=== PATIENT | female | born 1955 | race Caucasian/White ===

== ENCOUNTER → 2017-02-04 | Outpatient (CLI) | payer OTHER ==
--- NOTE | 2017-02-04 10:01 | DIAGNOSTIC IMAGING REPORT ---
CHEST 2 VIEWS ROUTINE CLINICAL HISTORY: R06.2 Wheezing on [id number] Shortness of [id number] COMPARISON STUDY: No previous studies for comparison. FINDINGS: The bones soft tissues and hemidiaphragms are normal. The cardiomediastinal silhouette is normal. The lungs are clear. The pulmonary vasculature is normal. IMPRESSION: Negative chest. Electronically signed by: Migue Garcia M.D. 02/04/2017 10:00 AM Dictated Date/Time: 02/04/2017 10:00 AM
== END | disposition home or self-care (01) ==
LOC: C.RAD 09:40
PROVIDERS: ATTEND Physician Assistant
DX: R06.02 Shortness of breath (principal); R06.2 Wheezing

== ENCOUNTER → 2017-02-13 | Outpatient (CLI) | payer OTHER ==
[2017-02-13 12:10] LABS: BASO % 0.5 %; BASO ABS # 0.04 K/uL (0-0.2); COMPLETE YES; EOS % 1.1 %; HEMATOCRIT 40.2 % (37-47); IG% 0.3 %; LYMPH ABS # 2.28 K/uL (1.2-3.4); MEAN CELL VOLUME 90.7 fL (80-100); MEAN CORPUSCULAR HEMOGLOBIN 29.1 pg (25-34); MEAN CORPUSCULAR HGB CONC 32.1 g/dl (32-36); MEAN PLATELET VOLUME 9.5 fL (7.4-10.4); MONO % 6.1 %; PLATELET COUNT 433 K/uL (130-400); RED BLOOD COUNT 4.43 M/uL (4.2-5.4); WHITE BLOOD COUNT 7.85 K/uL (4.8-10.8)
[2017-02-13 12:28] LABS: ALT/SGPT 17 U/L (12-78); BLOOD UREA NITROGEN 12 mg/dl (7-18); BUN/CREATININE RATIO 15.1 (10-20); CALCIUM 8.8 mg/dl (8.5-10.1); CARBON DIOXIDE 28 mmol/L (21-32); CHLORIDE 109 mmol/L (98-107); CHOLESTEROL 175 mg/dl (0-200); CREATININE 0.78 mg/dl (0.60-1.20); GLUCOSE,FASTING 90 mg/dl (70-99); SODIUM 142 mmol/L (136-145); TRIGLYCERIDES 90 mg/dl (0-150); VERY LOW DENSITY LIPOPROT CALC 18 mg/dl
[2017-02-13 12:31] LABS: ALKALINE PHOSPHATASE 76 U/L (45-117); AST/SGOT 10 U/L (15-37); CHOLESTEROL/HDL RATIO 3.8; HDL CHOLESTEROL 46 mg/dl; LDL CHOLESTEROL CALCULATED 111 mg/dl
== END | disposition home or self-care (01) ==
LOC: C.LABPBG 07:39
PROVIDERS: ATTEND Physician Assistant
DX: Z00.00 Encounter for general adult medical examination without abnormal findings (principal); R06.02 Shortness of breath; R05 Cough

== ENCOUNTER → 2017-03-03 | Outpatient (CLI) | payer OTHER ==
[2017-03-03 12:57] LABS: HEMATOCRIT 41.9 % (37-47); MEAN CELL VOLUME 91.3 fL (80-100); MEAN CORPUSCULAR HEMOGLOBIN 30.7 pg (25-34); MEAN CORPUSCULAR HGB CONC 33.7 g/dl (32-36); MEAN PLATELET VOLUME 9.8 fL (7.4-10.4); PLATELET COUNT 430 K/uL (130-400); RED BLOOD COUNT 4.59 M/uL (4.2-5.4); WHITE BLOOD COUNT 8.28 K/uL (4.8-10.8)
== END | disposition home or self-care (01) ==
LOC: C.LABPBG 08:28
PROVIDERS: ATTEND Physician Assistant
DX: D47.3 Essential (hemorrhagic) thrombocythemia (principal)

== ENCOUNTER → 2017-03-10 | Outpatient (CLI) | payer OTHER ==
[2017-03-10 12:19] LABS: HEMATOCRIT 40.1 % (37-47); MEAN CELL VOLUME 90.3 fL (80-100); MEAN CORPUSCULAR HEMOGLOBIN 29.3 pg (25-34); MEAN CORPUSCULAR HGB CONC 32.4 g/dl (32-36); MEAN PLATELET VOLUME 9.4 fL (7.4-10.4); PLATELET COUNT 401 K/uL (130-400); RED BLOOD COUNT 4.44 M/uL (4.2-5.4); WHITE BLOOD COUNT 6.98 K/uL (4.8-10.8)
[2017-03-10 13:06] LABS: C-REACTIVE PROTEIN 0.41 mg/dl (0-0.29); FERRITIN 21.7 ng/ml (8.0-388.0)
== END | disposition home or self-care (01) ==
LOC: C.LABPBG 07:38
PROVIDERS: ATTEND Physician Assistant
DX: D47.3 Essential (hemorrhagic) thrombocythemia (principal)

== ENCOUNTER → 2017-04-02 | Outpatient (CLI) | payer OTHER ==
--- NOTE | 2017-04-09 10:21 | CODING QUERY MEDICAL NECESSITY ---
SUPPORTING DIAGNOSIS NEEDED Dutch JEREMIE, A supporting diagnosis is required for the test/procedure performed on this patient in order for us to be reimbursed by the patient's insurance. Please provide a supporting diagnosis for the following test/procedure listed below next to the test name along with your signature. *If there is no additional diagnosis for this patient that would support the following test/procedure please document that below next to the test/procedure. Test(s)/Procedure(s) that require a supporting diagnosis: * VITAMIN D ASSAY DIAGNOSIS: DATE OF SERVICE: 04/02/17 Provider Signature: Date: Thank you Ari Gay [facility] Information Management Once completed, please kindly fax back to [phone] For questions please call [phone]
== END | disposition home or self-care (01) ==
LOC: C.LABPBG 09:51
PROVIDERS: ATTEND Physician Assistant
DX: Z13.21 Encounter for screening for nutritional disorder (principal); L65.9 Nonscarring hair loss, unspecified

== ENCOUNTER → 2017-11-21 | Outpatient (CLI) | payer OTHER ==
[~2017-11-21] MED LIST: ESCI10TA17 PO; FLUT50SP45 NAE; LISI-729 PO; PANT40TA PO; TRAZ50TA35 PO; VNTHFA/IN INH
== END | disposition home or self-care (01) ==
LOC: C.PATHSPEC 13:29
PROVIDERS: ATTEND Dermatology
DX: D22.5 Melanocytic nevi of trunk (principal); L82.0 Inflamed seborrheic keratosis

== ENCOUNTER → 2017-12-10 | Outpatient (CLI) | payer OTHER | END | disposition home or self-care (01) | LOC: C.PATHSPEC 11:39 | PROVIDERS: ATTEND Plastic Surgery | DX: L98.9 Disorder of the skin and subcutaneous tissue, unspecified (principal) ==

== ENCOUNTER → 2017-12-25 | Outpatient (CLI) | payer OTHER | END | disposition home or self-care (01) | LOC: C.PAPS 08:46 | PROVIDERS: ATTEND Obstetrics & Gynecology | DX: Z12.4 Encounter for screening for malignant neoplasm of cervix (principal) ==

== ENCOUNTER 2020-08-24 17:06 | Inpatient (IN) ==
[2020-08-24] MEDS ORDERED: LORazepam 1 MG/2 ML VIAL IV STA (17:38)
[2020-08-24] MEDS ORDERED: MULTI-VITAMIN INFUSION 10 ML, THIAMINE HCL 100 MG, FOLIC ACID 1 MG in SODIUM CHLORIDE 0... IV ONE (17:40)
--- NOTE | 2020-08-24 17:47 | Emergency Department Note ---
History of Present Illness General Chief complaint: Detox Request Stated complaint: NOT EATING, SHAKY Time Seen by Provider: 08/24/20 17:26 History of Present Illness Maximum Pain Intensity: 5 This is a 65-year-old female that presents to the emergency department via private vehicle with complaints of "not eating, shaky". The patient notes that she has consumed alcohol for several years. She states that normally she would drink about 6 beers per day and then notes that in the past there was an increase. She is unsure exactly when she increased her alcohol consumption but does note that on average now she consumes about 2 bottles of wine per day. She also does admit to some moonshine a few days ago. About 3 days ago after the moonshine she does note some bloody emesis. This was isolated. She does note that she has enrolled in detox before about 15 years ago while in [place]. Patient denies any seizure history related to this. The patient does feel quite shaky and agitated when not drinking. She also notes decreased food intake secondary to her upset stomach. The patient rates her current discomfort as a 5/10. Patient does note history of cholecystectomy. She denies any other pertinent past medical history or allergies. No anticoagulant use. Home Medications Medication Instructions Recorded Confirmed Type cholecalciferol (vitamin D3) 50 2,000 units PO DAILY #30 tab 03/08/19 08/24/20 Rx mcg (2,000 unit) tablet albuterol sulfate 90 mcg/actuation 2 puffs INH QID #8 gm 09/21/19 08/24/20 Rx aerosol inhaler lisinopril 5 mg tablet 5 mg PO DAILY #30 tab 03/03/20 08/24/20 Rx pantoprazole 40 mg tablet,delayed 40 mg PO DAILY #90 tab 03/21/20 08/24/20 Rx release fexofenadine 180 mg tablet 180 mg PO DAILY #30 tab 04/03/20 08/24/20 Rx escitalopram oxalate 20 mg tablet 20 mg PO DAILY #30 tab 05/24/20 08/24/20 Rx trazodone 50 mg tablet See Rx Instructions .ROUTE 06/30/20 08/24/20 Rx .COMPLEX #180 tab benzonatate 100 mg capsule 100 mg PO TID PRN #30 cap 08/17/20 08/24/20 Rx fluticasone propionate 50 2 spray INTNAS DAILY #16 gm 08/17/20 08/24/20 Rx mcg/actuation nasal spray,suspension Allergies Allergy/AdvReac Type Severity Reaction Status Date / Time No Known Allergies Allergy Verified 08/24/20 19:34 Past Med/Surg History Medical History (Updated 08/24/20 @ 23:28 by Sergio Escamilla PA-C) Allergic rhinitis Anxiety disorder Benign essential hypertension Depression Diverticulosis Elevated platelet count Elevated vitamin B12 level GERD without esophagitis Melanoma in situ Sinusitis, chronic Sleep disturbance Vitamin D deficiency Surgical History H/O: hysterectomy History of cholecystectomy History of sinus surgery History of tonsillectomy Family History Grandmother (Paternal) Colon cancer Father Cardiac disorder Sister Lung cancer Grandfather Lung cancer Grandmother (Maternal) Breast cancer Mother Ovarian cancer Denies family history of Prostate cancer Social History Smoking Status: Never smoker Second Hand Exposure: No; Hx Alcohol Use: Yes Alcohol type: wine Alcohol type Comment: 12 beers Hx Substance Use: No Preferred Language: Erit[place]an Communication Ability: Effective Visual Impairment: No Limitations Hearing Ability: Normal Cash Applications Coordinator Required: No Beliefs That Will Affect Care: None marital status: Current Living Situation: Spouse current occupational status: other 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 Feels Safe at Home: Yes Safety Concerns: Feels Safe At This Time Childhood Exposure to Second-Hand Smoke: Yes caffeine: Yes (coffee) during the past year weight has: remained stable Dental Care, Regularly: Yes Physical Activity Frequency: Daily Seatbelt Use: always Sunscreen Use: Yes Assistive Devices: Glasses Review of Systems A total of 10 systems reviewed and were otherwise negative Physical Exam Vital Signs Vital Signs - 24 hr 08/24/20 17:15 08/24/20 18:02 08/24/20 18:10 Temperature 36.9 C Temperature Source Skin Pulse Rate 120 H 101 H 103 H Respiratory Rate 19 19 29 H Blood Pressure 161/90 H Blood Pressure Mean 113 Pulse Oximetry 99 Oxygen Delivery Method Room Air Room Air Room Air Sepsis Recent Fever Within 48 Hours No Sepsis New/Unexplained Change in Mental Status N/A Sepsis Action Taken by Nursing No Action Required 08/24/20 18:23 08/24/20 18:30 08/24/20 18:40 Temperature Temperature Source Pulse Rate 113 H 103 H 102 H Respiratory Rate 26 H 20 22 Blood Pressure Blood Pressure Mean Pulse Oximetry Oxygen Delivery Method Room Air Room Air Room Air Sepsis Recent Fever Within 48 Hours Sepsis New/Unexplained Change in Mental Status Sepsis Action Taken by Nursing 08/24/20 18:50 08/24/20 19:00 08/24/20 19:10 Temperature Temperature Source Pulse Rate 102 H 101 H 102 H Respiratory Rate 20 20 21 Blood Pressure Blood Pressure Mean Pulse Oximetry Oxygen Delivery Method Room Air Room Air Room Air Sepsis Recent Fever Within 48 Hours Sepsis New/Unexplained Change in Mental Status Sepsis Action Taken by Nursing 08/24/20 19:20 08/24/20 19:30 08/24/20 19:40 Temperature Temperature Source Pulse Rate 105 H 102 H 102 H Respiratory Rate 23 22 20 Blood Pressure Blood Pressure Mean Pulse Oximetry Oxygen Delivery Method Room Air Room Air Room Air Sepsis Recent Fever Within 48 Hours Sepsis New/Unexplained Change in Mental Status Sepsis Action Taken by Nursing 08/24/20 19:50 08/24/20 19:52 Temperature Temperature Source Pulse Rate 105 H Respiratory Rate 23 Blood Pressure Blood Pressure Mean Pulse Oximetry Oxygen Delivery Method Room Air Room Air Sepsis Recent Fever Within 48 Hours Sepsis New/Unexplained Change in Mental Status Sepsis Action Taken by Nursing VITAL SIGNS - Vital signs and nursing notes were reviewed. Tachycardic, otherwise stable. GENERAL -65-year-old female appearing her stated age who is in no acute distres s. Communicates well with provider and answers questions appropriately. SKIN - Without rashes. No meningeal or petechial rash. HEAD - NC/AT. EYES - PERRL with EOMI bilaterally. Sclera anicteric. EARS - No deformities of external structures noted on gross examination bilaterally. NOSE - Midline and without cyanosis. No epistaxis or purulent drainage noted. MOUTH/OROPHARYNX - Without perioral cyanosis. NECK - Neck with FROM. No nuchal rigidity. LUNGS - Chest wall symmetric without accessory muscle use, intercostals retractions, or central cyanosis. Normal vesicular breath sounds CTA B/L. No wheezes, rales, or rhonchi appreciated. CARDIAC - RRR with S1/S2. No murmur, rubs, or gallops appreciated. ABDOMEN - Abdominal contour normal without pulsations or visible masses. BS normoactive all four quadrants. No tenderness, palpable masses, hepatosplenomegaly, or ascites noted. EXTREMITIES -tremor noted with patient's upper extremities outstretched. +5/5 strength noted in UE/LE bilaterally. NEUROLOGIC - Cranial nerves II through XII grossly intact. PSYCH - A&Ox3 and cooperates fully with examiner. Pt is very pleasant and interacts well with examiner. Course Administered Medications Acetaminophen (Acetaminophen 325 Mg Tab) 650 mg PO Q4H PRN PRN Reason: Pain or Fever Stop: 09/23/20 22:27 Last Admin: 08/24/20 23:13 Dose: 650 mg Documented by: [id number] Sodium Chloride (Nss 1000ml) 1,000 mls @ 100 mls/hr IV .Q10H MARÍA ELENA Stop: 08/25/20 18:27 Last Admin: 08/24/20 22:48 Dose: 100 mls/hr Documented by: [id number] Discontinued Medications Lorazepam (Ativan) 1 mg in 2 mls @ 2 mls/min IV NOW STA Stop: 08/24/20 17:39 Last Admin: 08/24/20 18:41 Dose: 2 mls/min Documented by: [id number] Multivitamins 10 ml/ Thiamine HCl 100 mg/ Folic Acid 1 mg/Sodium Chloride 1,011.2 mls @ 1,011.2 mls/hr IV .Q1H ONE Stop: 08/24/20 18:39 Last Infusion: 08/24/20 19:43 Dose: 0 mls/hr Documented by: [id number] Admin: 08/24/20 18:40 Dose: 1,011.2 mls/hr Documented by: [id number] Sodium Chloride (Nss 1000ml) 500 mls @ 999 mls/hr IV .Q31M ONE Stop: 08/24/20 20:50 Last Infusion: 08/24/20 21:16 Dose: 0 mls/hr Documented by: [id number] Admin: 08/24/20 20:44 Dose: 999 mls/hr Documented by: [id number] Medical Decision Making Laboratory Data Result diagrams: 08/24/20 18:28 08/24/20 18:28 Lab Results 08/24/20 08/24/20 08/24/20 Range/Units 18:28 18:28 18:28 WBC 12.50 H (4.8-10.8) K/uL RBC 4.33 (4.2-5.4) M/uL Hgb 13.1 (12.0-16.0) g/dL Hct 38.3 (37-47) % MCV 88.5 (80-100) fL MCH 30.3 (25-34) pg MCHC 34.2 (32-36) g/dL RDW Std Deviation 44.1 (36.4-46.3) fL RDW Coeff of Cory 13.4 (11.5-14.5) % Plt Count 484 H (130-400) K/uL MPV 8.2 (7.4-10.4) fL Immature Gran % (Auto) 0.2 % Neut % (Auto) 74.3 % Lymph % (Auto) 17.6 % [place] % (Auto) 7.4 % Eos % (Auto) 0.3 % Baso % (Auto) 0.2 % Neut # (Auto) 9.28 H (1.4-6.5) K/uL Lymph # (Auto) 2.20 (1.2-3.4) K/uL [place] # (Auto) 0.93 H (0.11-0.59) K/uL Eos # (Auto) 0.04 (0-0.5) K/uL Baso # (Auto) 0.03 (0-0.2) K/uL Immature Gran # (Auto) 0.02 (0.00-0.02) K/uL PT 10.4 (9.0-12.0) Seconds INR 1.0 (0.9-1.1) APTT 28.5 (21.0-31.0) Seconds PTT Ratio 1.0 Sodium 127 L (136-145) mmol/L Potassium 4.0 (3.5-5.1) mmol/L Chloride 92 L (98-107) mmol/L Carbon Dioxide 27 (21-32) mmol/L Anion Gap 8.0 (3-11) BUN 12 (7-18) mg/dl Creatinine 1.04 (0.6-1.2) mg/dl Est Cr Clr Drug Dosing 56.9 ml/min Est GFR ( Amer) 65.8 Est GFR (Non-Af Amer) 56.7 BUN/Creatinine Ratio 11.2 (10-20) Glucose 99 (70-99) mg/dl Osmolality (280-300) mOsm/kg Calcium 9.0 (8.5-10.1) mg/dl Magnesium 2.2 (1.8-2.4) mg/dl Total Bilirubin 1.4 H (0.2-1) mg/dl AST 14 L (15-37) U/L ALT 27 (12-78) U/L Alkaline Phosphatase 82 (45-117) U/L Total Protein 7.9 (6.4-8.2) gm/dl Albumin 4.2 (3.4-5.0) gm/dl Globulin 3.7 (2.5-4.0) gm/dl Albumin/Globulin Ratio 1.1 (0.9-2) Lipase 110 (73-393) U/L Ethyl Alcohol mg/dL (0-3) mg/dl 08/24/20 08/24/20 Range/Units 18:28 18:30 WBC (4.8-10.8) K/uL RBC (4.2-5.4) M/uL Hgb (12.0-16.0) g/dL Hct (37-47) % MCV (80-100) fL MCH (25-34) pg MCHC (32-36) g/dL RDW Std Deviation (36.4-46.3) fL RDW Coeff of Cory (11.5-14.5) % Plt Count (130-400) K/uL MPV (7.4-10.4) fL Immature Gran % (Auto) % Neut % (Auto) % Lymph % (Auto) % [place] % (Auto) % Eos % (Auto) % Baso % (Auto) % Neut # (Auto) (1.4-6.5) K/uL Lymph # (Auto) (1.2-3.4) K/uL [place] # (Auto) (0.11-0.59) K/uL Eos # (Auto) (0-0.5) K/uL Baso # (Auto) (0-0.2) K/uL Immature Gran # (Auto) (0.00-0.02) K/uL PT (9.0-12.0) Seconds INR (0.9-1.1) APTT (21.0-31.0) Seconds PTT Ratio Sodium (136-145) mmol/L Potassium (3.5-5.1) mmol/L Chloride (98-107) mmol/L Carbon Dioxide (21-32) mmol/L Anion Gap (3-11) BUN (7-18) mg/dl Creatinine (0.6-1.2) mg/dl Est Cr Clr Drug Dosing ml/min Est GFR ( Amer) Est GFR (Non-Af Amer) BUN/Creatinine Ratio (10-20) Glucose (70-99) mg/dl Osmolality 267 L (280-300) mOsm/kg Calcium (8.5-10.1) mg/dl Magnesium (1.8-2.4) mg/dl Total Bilirubin (0.2-1) mg/dl AST (15-37) U/L ALT (12-78) U/L Alkaline Phosphatase (45-117) U/L Total Protein (6.4-8.2) gm/dl Albumin (3.4-5.0) gm/dl Globulin (2.5-4.0) gm/dl Albumin/Globulin Ratio (0.9-2) Lipase (73-393) U/L Ethyl Alcohol mg/dL < 3.0 (0-3) mg/dl Imaging Data Radiologist's Impression: SINGLE VIEW CHEST CLINICAL HISTORY: Cough FINDINGS: An AP, portable, upright chest radiograph is compared to study dated 02/04/2017. The cardiomediastinal silhouette is unremarkable. The lungs and pleural spaces are clear. No pneumothorax is seen. The bony thorax is grossly intact. Cholecystectomy clips are noted in the right upper quadrant. Scoliosis is noted in the thoracolumbar spine. IMPRESSION: No active disease in the chest. ACT 112: Negative or not required by law. Electronically signed by: Alexey Watt M.D. 08/24/2020 5:51 PM [facility] Narrative Patient was seen and evaluated as above in room C2. Review was performed of nursing notes and vital signs. After obtaining a thorough history and physical examination the above work up was performed. Patient presents to us today with a desire to quit drinking. She appears to be actively withdrawing from alcohol on my examination. Patient does note feeling agitated, has a tremor with arms outstretched and does note that she has not had any to drink since this morning. She is here seeking help to stop drinking. She does note an increase in her consumption of alcohol recently. Options of care were discussed with the patient. EKG was obtained on arrival given her tachycardic state which revealed sinus tachycardia rate of 103 bpm. No ectopy or ischemic change. No ST el evation. QTc 450. She was given IV Ativan and a banana bag. She was reevaluated with tremendous improvement. There is mild leukocytosis 12.5 without significant anemia. Hyponatremia 127. There is no evidence of emergent kidney or liver failure. T bili 1.4. Covid testing negative. Current alcohol level negative. Lipase within normal limits. Options of care were discussed with the patient. Given the time of day and presentation options at this time after discussing this with case management would either be discharging the patient home to reach out to [facility] for resources in the morning versus admission here. I do not believe that it would be safe to discharge patient at this time on a Librium taper noting how much she is drinking and noting that she is not tolerating p.o. well and also the variability of being able to follow-up for rehab. I will also note that the patient does have a significantly decreased sodium level. Patient desires to stay which I do believe is reasonable. This was discussed with the hospitalist and I do believe this is the best scenario for the patient. Please refer to further documentation regarding her stay. Patient was seen during the COVID- pandemic. Continuous cardiac monitoring was ordered secondary to presentation with her t achycardic state. This revealed a rate of 105 bpm. Sinus rhythm. GCS: 15 In the evaluation and treatment of this patient the following differential diagnoses were entertained: SD, PE, arrhythmia, pericarditis, costochondritis, alcohol withdrawal, DTs, seizure, among others. Impression & Plan Alcohol withdrawal, Acute hyponatremia Discharge Plan Visit Data Chief Complaint: Detox Request Stated Complaint: NOT EATING, SHAKY ED Provider: Abdelrahman Lubin ED Midlevel Provider: Sergio Escamilla Discharge Problem: Alcohol withdrawal, Acute hyponatremia Patient Disposition: Admitted As Inpatient Discharge Instructions Interventions: ED Discharge Assessment Last Done: 08/24/20 21:42
--- NOTE | 2020-08-24 17:53 | XRay Report ---
SINGLE VIEW CHEST CLINICAL HISTORY: Cough FINDINGS: An AP, portable, upright chest radiograph is compared to study dated 02/04/2017. The cardiom ediastinal silhouette is unremarkable. The lungs and pleural spaces are clear. No pneumothorax is see n. The bony thorax is grossly intact. Cholecystectomy clips are noted in the right upper quadrant. Sc oliosis is noted in the thoracolumbar spine. IMPRESSION: No active disease in the chest. ACT 112: Negative or not required by law. Electronically signed by: Alexey Watt M.D. 08/24/2020 5:51 PM
[2020-08-24 18:40] LABS: Basophils # (auto) 0.03 K/uL (0-0.2); Basophils % (auto) 0.2 %; Eosinophils # (auto) 0.04 K/uL (0-0.5); Eosinophils % (auto) 0.3 %; Hematocrit (blood only) 38.3 % (37-47); Hemoglobin 13.1 g/dL (12.0-16.0); Immature Granulocytes # (auto) 0.02 K/uL (0.00-0.02); Immature Granulocytes % (auto) 0.2 %; Lymphocytes % (auto) 17.6 %; Mean Corpuscular Hemoglobin 30.3 pg (25-34); Mean Corpuscular Hgb Conc 34.2 g/dL (32-36); Mean Corpuscular Volume 88.5 fL (80-100); Mean Platelet Volume 8.2 fL (7.4-10.4); Monocytes # (auto) 0.93 K/uL (0.11-0.59); Monocytes % (auto) 7.4 %; Neutrophils # (auto) 9.28 K/uL (1.4-6.5); Neutrophils % (auto) 74.3 %; Platelet Count 484 K/uL (130-400); RDW Coefficient of Variation 13.4 % (11.5-14.5); RDW Standard Deviation 44.1 fL (36.4-46.3); Red Blood Count 4.33 M/uL (4.2-5.4)
[2020-08-24 18:51] LABS: Partial Thromboplastin Time 28.5 Seconds (21.0-31.0); Prothrombin Time 10.4 Seconds (9.0-12.0)
[2020-08-24 18:57] LABS: Albumin Level 4.2 gm/dl (3.4-5.0); BUN Creatinine Ratio 11.2 (10-20); Creatinine Clr Calc Pharmacy 56.9 ml/min; Est GFR (African American) 65.8; Est GFR (Non-African American) 56.7; Magnesium 2.2 mg/dl (1.8-2.4)
[2020-08-24 19:00] LABS: Albumin Globulin Ratio 1.1 (0.9-2); Bilirubin,Total 1.4 mg/dl (0.2-1); Globulin 3.7 gm/dl (2.5-4.0); Total Protein 7.9 gm/dl (6.4-8.2)
--- NOTE | 2020-08-24 20:05 | History & Physical Report ---
Date of Service August 24, 2020 Assessment & Plan (1) Alcohol withdrawal: Patient is a 65 year old female with PMHx Alcohol use disorder, Asthma, Anxiety, Depression, Hypertension that presented with concerns of alcohol withdrawal, last drink was around 10AM 08/24/20. Alcohol Withdrawal -Patient noting last drink 10AM 08/24/20 of 1 bottle of wine -Drinks roughly 2 bottles of wine or 30 beers daily for "several years" -Alcohol level on admission <3 -Given 1mg Lorazepam and Banana bag infusion in ED -Will place on AWSS protocol with Gabapentin and Ativan PRN -Folic acid 1mg qd -Thiamine 100mg qd -Seizure precautions -Patient noting that she would want to go to rehab after this hospital stay Hyponatremia -Sodium 127 on admission -Likely secondary to alcohol use disorder, though will order for Serum and Urine Osmols, pending. -NSS 100ml/hr Allergic Asthma -Albuterol PRN wheezing -Continue home Flonase -Continue home Lynette GERD -Continue home pantoprazole HTN -Continue home Lisinopril Anxiety/Depression -Continue home Lexapro -Continue home Trazodone qhs Dispo: Med/Surg Telemetry FEN: Regular diet, NSS 100ml/hr DVT: Low risk, SCDs Code: DNR/DNI History of Present Illness Chief Complaint: Alcohol withdrawal Primary Care Provider: Dinah Carranza DO Patient is a 65 year old female with PMHx Alcohol use disorder, Asthma, Anxiety, Depression, Hypertension that presented with concerns of alcohol withdrawal, last drink was around 10AM 08/24/20. Patient notes that 3 days ago she had been drinking wine and moonshine when she had "multiple episodes of bloody vomit." Patient was unable to determine amount of blood that was excreted. She states that during that time she also had visual hallucinations, though cannot recall what she had seen. She notes a longstanding history of alcohol use and that she typically will do 2 bottles of wine daily or 30 beers. She notes that she also had a single bout of bloody emesis yesterday, but that it was minimal compared to 3 days ago. Patients last drink was around 10AM today which was 1 bottle of wine. She notes currently that she is feeling "shaky" with nausea and 1x episode of mucus emesis prior to my arrival to the room. She also notes urinary hesitancy, but denies any dysuria. She states she is interested in "detox" and for admission to a rehab facility after discharge. She had last undergone rehab 15 years ago and was sober for 2 months after that discharge. Currently otherwise denies any fever, chills, sob, chest pain, abdominal pain at rest, constipation, hallucinations. She has never had a seizure due to withdrawals. Med Hx: Asthma, Anxiety, Depression, HTN, Alcohol use disorder Surg hx: Cholecystectomy Family Hx: Uncle and Son alcohol use disorder Allergies Allergy/AdvReac Type Severity Reaction Status Date / Time No Known Allergies Allergy Verified 08/24/20 19:34 Home Medications Medication Instructions Recorded Confirmed Type cholecalciferol (vitamin D3) 50 2,000 units PO DAILY #30 tab 03/08/19 08/24/20 Rx mcg (2,000 unit) tablet albuterol sulfate 90 mcg/actuation 2 puffs INH QID #8 gm 09/21/19 08/24/20 Rx aerosol inhaler lisinopril 5 mg tablet 5 mg PO DAILY #30 tab 03/03/20 08/24/20 Rx pantoprazole 40 mg tablet,delayed 40 mg PO DAILY #90 tab 03/21/20 08/24/20 Rx release fexofenadine 180 mg tablet 180 mg PO DAILY #30 tab 04/03/20 08/24/20 Rx escitalopram oxalate 20 mg tablet 20 mg PO DAILY #30 tab 05/24/20 08/24/20 Rx trazodone 50 mg tablet See Rx Instructions .ROUTE 06/30/20 08/24/20 Rx .COMPLEX #180 tab benzonatate 100 mg capsule 100 mg PO TID PRN #30 cap 08/17/20 08/24/20 Rx fluticasone propionate 50 2 spray INTNAS DAILY #16 gm 08/17/20 08/24/20 Rx mcg/actuation nasal spray,suspension Past Med/Surg History Medical History (Updated 08/24/20 @ 23:28 by Sergio Escamilla PA-C) Allergic rhinitis Anxiety disorder Benign essential hypertension Depression Diverticulosis Elevated platelet count Elevated vitamin B12 level GERD without esophagitis Melanoma in situ Sinusitis, chronic Sleep disturbance Vitamin D deficiency Surgical History H/O: hysterectomy History of cholecystectomy History of sinus surgery History of tonsillectomy Family History Grandmother (Paternal) Colon cancer Father Cardiac disorder Sister Lung cancer Grandfather Lung cancer Grandmother (Maternal) Breast cancer Mother Ovarian cancer Denies family history of Prostate cancer Social History Smoking Status: Never smoker Second Hand Exposure: No; Hx Alcohol Use: Yes Alcohol type: wine Alcohol type Comment: 12 beers Hx Substance Use: No Preferred Language: [place] Communication Ability: Effective Visual Impairment: No Limitations Hearing Ability: Normal Horse Identifier Required: No Beliefs That Will Affect Care: None marital status: Current Living Situation: Spouse current occupational status: other 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 Feels Safe at Home: Yes Safety Concerns: Feels Safe At This Time Childhood Exposure to Second-Hand Smoke: Yes caffeine: Yes (coffee) during the past year weight has: remained stable Dental Care, Regularly: Yes Physical Activity Frequency: Daily Seatbelt Use: always Sunscreen Use: Yes Assistive Devices: Glasses Review of Systems Review of Systems: All systems reviewed & are unremarkable except as noted in Subjective Physical Exam Constitutional: + disheveled and cooperative; no acute distress and not intoxicated appearing Eyes: PERRL, conjunctivae normal, anicteric sclerae ENMT: external ear and nose normal, oropharynx normal Respiratory: normal respiratory effort, lungs clear to auscultation Cardiovascular: Rate/Rhythm: + tachycardic Heart Sounds: normal S1 and normal S2; no murmur Gastrointestinal (Abdomen): Inspection/Auscultation: abdomen normal to inspection and normal bowel sounds; abdomen not distended Percussion/Palpation: + abdomen tender (slight TTP in the lower L quadrant ) and abdomen soft; no guarding, abdomen not rigid and no hepatosplenomegaly Skin: no rashes, warm and dry Neurologic: PERRL, EOMI, accommodation nl, no face palsy, no dysarthria Psychiatric: Orientation: alert and oriented x 3 Affect: + anxious affect Results & Data Results & Data ([facility]) Vital Signs (Past 12 Hours) Vital Signs Temp Pulse Resp BP Pulse Ox 08/24/20 19:50 105 H 23 01/07/21 19:40 102 H 20 08/24/20 19:30 102 H 22 08/24/20 19:20 105 H 23 08/24/20 19:10 102 H 21 08/24/20 19:00 101 H 20 08/24/20 18:50 102 H 20 08/24/20 18:40 102 H 22 08/24/20 18:30 103 H 20 08/24/20 18:23 113 H 26 H 08/24/20 18:10 103 H 29 H 08/24/20 18:02 101 H 19 08/24/20 17:15 36.9 C 120 H 19 161/90 H 99 Supervising Physician Co-Signing Physician Notes Attending addendum: I have physically seen this patient, have supervised the medical residents activities, and agree with the H&P unless as otherwise noted. Assessment and Plan: Alcohol withdrawal- Placed on RUBEN is protocol with gabapentin orally and as needed Ativan IV. Folic acid 1 mg p.o. daily Thiamine 100 mg p.o. daily Nephrocaps 1 p.o. daily Seizure precautions Hyponatremia-sodium 127 upon admission. Check serum and urine osmolality NSS at 100 mils per hour Hypertension- Continue home dosing of lisinopril GERD- Continue pantoprazole 40 mg daily Asthma/allergy- Continue Flonase and Lynette. Albuterol HFA as needed Remaining orders and notations as noted Resident Activity Tracking Resident Involvement: Resident Care Provided Care Provided: Adult Hospital Medicine
[2020-08-24] MEDS ORDERED: SODIUM CHLORIDE 0.9% 1000ML 500 ML IV ONE (20:20)
[2020-08-24] MEDS ORDERED: ALBUTEROL HFA 8 GM INHALER INH PRN (22:28)
[2020-08-24] MEDS ORDERED: GABAPENTIN 1200MG ALCOHOL WITHDRAWAL LOAD PO STA (22:28)
[2020-08-24] MEDS ORDERED: LORazepam 3 MG/6 ML VIAL IV PRN (22:28)
[2020-08-24] MEDS ORDERED: ATIVAN IV ALCOHOL WITHDRAWL IV PRN (22:28)
[2020-08-24] MEDS ORDERED: LORazepam 2 MG/4 ML VIAL IV PRN (22:28)
[2020-08-24] MEDS: SODIUM CHLORIDE 0.9% 1000ML 1,000 ML IV SCH (22:48)
[2020-08-24] MEDS ORDERED: GABAPENTIN 600 MG TAB PO ONE (23:00)
[2020-08-24] MEDS: ACETAMINOPHEN 325 MG TAB PO PRN (23:13)
[2020-08-24] MEDS: FOLIC ACID 1 MG TAB PO SCH (23:27)
[2020-08-24] MEDS: traZODone HCL 100 MG TAB PO SCH (23:27)
[2020-08-24] MEDS: THIAMINE HCL 100 MG TAB PO SCH (23:28)
[2020-08-25] MEDS: GABAPENTIN 600 MG TAB PO SCH ×3 (06:39→21:00)
[2020-08-25] MEDS: ACETAMINOPHEN 325 MG TAB PO PRN ×2 (06:40→14:20)
[2020-08-25 06:56] LABS: Basophils # (auto) 0.03 K/uL (0-0.2); Basophils % (auto) 0.5 %; Eosinophils % (auto) 1.5 %; Hematocrit (blood only) 32.3 % (37-47); Hemoglobin 10.8 g/dL (12.0-16.0); Immature Granulocytes # (auto) 0.01 K/uL (0.00-0.02); Immature Granulocytes % (auto) 0.2 %; Lymphocytes # (auto) 2.01 K/uL (1.2-3.4); Lymphocytes % (auto) 30.6 %; Mean Corpuscular Hemoglobin 30.2 pg (25-34); Mean Corpuscular Hgb Conc 33.4 g/dL (32-36); Mean Corpuscular Volume 90.2 fL (80-100); Mean Platelet Volume 8.3 fL (7.4-10.4); Monocytes # (auto) 0.64 K/uL (0.11-0.59); Monocytes % (auto) 9.8 %; Neutrophils # (auto) 3.77 K/uL (1.4-6.5); Neutrophils % (auto) 57.4 %; Platelet Count 367 K/uL (130-400); RDW Coefficient of Variation 13.7 % (11.5-14.5); RDW Standard Deviation 45.4 fL (36.4-46.3); Red Blood Count 3.58 M/uL (4.2-5.4); White Blood Count 6.56 K/uL (4.8-10.8)
[2020-08-25 07:28] LABS: Albumin Globulin Ratio 1.3 (0.9-2); Albumin Level 3.2 gm/dl (3.4-5.0); BUN Creatinine Ratio 13.3 (10-20); Bilirubin,Total 1.6 mg/dl (0.2-1); Calcium 8.5 mg/dl (8.5-10.1); Creatinine Clr Calc Pharmacy 92.7 ml/min; Est GFR (African American) 108.7; Est GFR (Non-African American) 93.8; Globulin 2.5 gm/dl (2.5-4.0); Total Protein 5.7 gm/dl (6.4-8.2)
[2020-08-25] MEDS: lisinopril 5 MG TAB PO SCH (08:18)
[2020-08-25] MEDS: ESCITALOPRAM OXALATE 20 MG TAB PO SCH (08:18)
[2020-08-25] MEDS: THIAMINE HCL 100 MG TAB PO SCH (08:18)
[2020-08-25] MEDS: FEXOFENADINE HCL 180 MG TAB PO SCH (08:18)
[2020-08-25] MEDS: FLUTICASONE PROPIONATE NA SPR 16 GM BTL NAE SCH (08:18)
[2020-08-25] MEDS: PANTOprazole 40 MG TAB PO SCH (08:18)
[2020-08-25 08:21] LABS: Folate (Folic Acid) > 20.00 ng/ml (>5.38); Vitamin B12 1133 pg/ml (193-986)
[2020-08-25] MEDS: ONDANSETRON INJ 2 MG/ML 2 ML VIAL IV PRN (08:47)
[2020-08-25] MEDS: SODIUM CHLORIDE 0.9% 1000ML 1,000 ML IV SCH (08:49)
[2020-08-25] MEDS: FOLIC ACID 1 MG TAB PO SCH (09:09)
--- NOTE | 2020-08-25 11:56 | Electrocardiogram Report ---
Test Reason : Blood Pressure : / mmHG Vent. Rate : 103 BPM Atrial Rate : 103 BPM P-R Int : 158 ms QRS Dur : 080 ms QT Int : 344 ms P-R-T Axes : 060 022 031 degrees QTc Int : 450 ms Sinus tachycardia Otherwise normal ECG No previous ECGs available Confirmed by Roland Francois ([id number]) on 08/25/2020 11:56:25 AM Referred By: REFERRED SELF Confirmed By:Roland Francois
[2020-08-25] MEDS: guaiFENesin/DEXTROM SYRUP 200MG/20MG 10ML UDC PO PRN (17:25)
[2020-08-25] MEDS: traZODone HCL 100 MG TAB PO SCH (21:00)
--- NOTE | 2020-08-25 22:37 | Hospitalist Progress Note ---
Date of Service August 25, 2020 Assessment & Plan (1) Alcohol withdrawal: Patient is a 65 year old female with PMHx Alcohol use disorder, Asthma, Anxiety, Depression, Hypertension that presented with concerns of alcohol withdrawal, last drink was around 10AM 08/24/20. Alcohol Withdrawal -Patient noting last drink 10AM 08/24/20 of 1 bottle of wine -Drinks roughly 2 bottles of wine or 30 beers daily for "several years" -Alcohol level on admission <3 will continue gabapentin taper and ativan scale. One dose of gabapentin was held due to lethargy. -Patient noting that she would want to go to rehab after this hospital stay (2) Hyponatremia: Hyponatremia -Sodium 127 on admission -Likely secondary to alcohol use disorder, though will order for Serum and Urine Osmols, pending. -NSS 100ml/hr (3) Allergic rhinitis: Allergic Asthma -Albuterol PRN wheezing -Continue home Flonase -Continue home Lynette (4) GERD without esophagitis: GERD -Continue home pantoprazole HTN -Continue home Lisinopril (5) Benign essential hypertension: continue home meds. BP at goal. (6) Anxiety disorder: -Continue home Lexapro -Continue home Trazodone qhs Dispo: Med/Surg Telemetry FEN: Regular diet, NSS 100ml/hr DVT: Low risk, SCDs Code: DNR/DNI Admission and Anticipated Discharge Date Admission Date: August 24, 2020 Subjective Patient reports feeling well. Her main complaint is that she is worried about sleeping this evening Review of Systems Review of Systems: All systems reviewed & are unremarkable except as noted in HPI & below Physical Exam Physical Exam: Constitutional: no acute distress and not intoxicated appearing Eyes: PERRL, conjunctivae normal, anicteric sclerae ENMT: external ear and nose normal, oropharynx normal Respiratory: normal respiratory effort, lungs clear to auscultation Cardiovascular: Rate/Rhythm: + tachycardic Heart Sounds: normal S1 and normal S2; no murmur Gastrointestinal (Abdomen): Inspection/Auscultation: abdomen normal to inspection and normal bowel sounds; abdomen not distended Percussion/Palpation: + abdomen tender (slight TTP in the lower L quadrant ) and abdomen soft; no guarding, abdomen not rigid and no hepatosplenomegaly Skin: no rashes, warm and dry Neurologic: PERRL, EOMI, accommodation nl, no face palsy, no dysarthria Psychiatric: Orientation: alert and oriented x 3 Affect: + anxious affect Results & Data Results & Data ([facility]) Vital Signs (Past 12 Hours) Vital Signs Temp Pulse Pulse Resp BP Pulse Ox 08/25/20 19:00 36.7 C 95 H 18 125/78 94 08/25/20 15:00 36.7 C 96 H 105 H 18 125/78 97 08/25/20 11:23 36.6 C 106 H 20 134/83 93 PG Care Time/CCT Total # of Minutes Spent Total Time Spent with Patient: Total time spent is greater than 50% in coordination of care (as documented) at patient's floor/unit and/or counseling patient: Coding Level of Care Code 87645 Subseq Hosp Care Lvl 3 Diagnoses Alcohol withdrawal F10.239 Hyponatremia E87.1 Allergic rhinitis J30.9 GERD without esophagitis K21.9 Benign essential hypertension I10 Anxiety disorder F41.9
[2020-08-26] MEDS: ACETAMINOPHEN 325 MG TAB PO PRN ×3 (05:02→14:36)
[2020-08-26] MEDS: GABAPENTIN 600 MG TAB PO SCH ×2 (05:03→14:36)
--- NOTE | 2020-08-26 06:23 | Billing Data ---
Date of Service August 26, 2020 Coding Level of Care Code 78904 Initial Inpt Care Lvl 3
[2020-08-26 08:09] LABS: Hematocrit (blood only) 33.9 % (37-47); Hemoglobin 11.2 g/dL (12.0-16.0); Mean Corpuscular Hemoglobin 30.3 pg (25-34); Mean Corpuscular Volume 91.6 fL (80-100); Mean Platelet Volume 8.2 fL (7.4-10.4); Platelet Count 334 K/uL (130-400); RDW Coefficient of Variation 13.6 % (11.5-14.5); RDW Standard Deviation 45.9 fL (36.4-46.3)
[2020-08-26 08:31] LABS: BUN Creatinine Ratio 16.9 (10-20); Creatinine Clr Calc Pharmacy 93.1 ml/min; Est GFR (African American) 108.7; Est GFR (Non-African American) 93.8; Potassium 4.2 mmol/L (3.5-5.1)
[2020-08-26] MEDS: lisinopril 5 MG TAB PO SCH (08:42)
[2020-08-26] MEDS: ESCITALOPRAM OXALATE 20 MG TAB PO SCH (08:42)
[2020-08-26] MEDS: guaiFENesin/DEXTROM SYRUP 200MG/20MG 10ML UDC PO PRN ×2 (08:42→14:36)
[2020-08-26] MEDS: FEXOFENADINE HCL 180 MG TAB PO SCH (08:42)
[2020-08-26] MEDS: FOLIC ACID 1 MG TAB PO SCH (08:42)
[2020-08-26] MEDS: PANTOprazole 40 MG TAB PO SCH (08:42)
[2020-08-26] MEDS: THIAMINE HCL 100 MG TAB PO SCH (08:43)
[2020-08-26] MEDS: FLUTICASONE PROPIONATE NA SPR 16 GM BTL NAE SCH (08:43)
[2020-08-26] MEDS: LORazepam 1 MG/2 ML VIAL IV PRN (11:26)
[2020-08-26] MEDS: ONDANSETRON INJ 2 MG/ML 2 ML VIAL IV PRN (17:24)
[2020-08-26] MEDS: traZODone HCL 100 MG TAB PO SCH (20:49)
--- NOTE | 2020-08-26 23:02 | Hospitalist Progress Note ---
Date of Service August 26, 2020 Assessment & Plan (1) Alcohol withdrawal: Patient is a 65 year old female with PMHx Alcohol use disorder, Asthma, Anxiety, Depression, Hypertension that presented with concerns of alcohol withdrawal, last drink was around 10AM 08/24/20. Alcohol Withdrawal -Patient noting last drink 10AM 08/24/20 of 1 bottle of wine -Drinks roughly 2 bottles of wine or 30 beers daily for "several years" -Alcohol level on admission <3 will continue gabapentin taper and ativan scale. -Patient noting that she would want to go to rehab after this hospital stay -HR has been intermittently elevated. will continue to monitor patient. (2) Hyponatremia: Hyponatremia -Sodium 127 on admission -improved. (3) Allergic rhinitis: Allergic Asthma -Albuterol PRN wheezing -Continue home Flonase -Continue home Lynette (4) GERD without esophagitis: GERD -Continue home pantoprazole HTN -Continue home Lisinopril (5) Benign essential hypertension: continue home meds. BP at goal. (6) Anxiety disorder: -Continue home Lexapro -Continue home Trazodone qhs Dispo: Med/Surg Telemetry FEN: Regular diet, NSS 100ml/hr DVT: Low risk, SCDs Code: DNR/DNI Admission and Anticipated Discharge Date Admission Date: August 24, 2020 Subjective Patient reports she had a rough night and was not able to sleep well. She states she hallucinates but reports she does this even at home. She sometimes sees a shadow move but then notices that nothing was really there. She does report though that at the moment she is calm. Review of Systems Review of Systems: All systems reviewed & are unremarkable except as noted in HPI & below Physical Exam Physical Exam: Constitutional: no acute distress and not intoxicated appearing Eyes: PERRL, conjunctivae normal, anicteric sclerae ENMT: external ear and nose normal, oropharynx normal Respiratory: normal respiratory effort, lungs clear to auscultation Cardiovascular: Rate/Rhythm: + tachycardic Heart Sounds: normal S1 and normal S2; no murmur Gastrointestinal (Abdomen): Inspection/Auscultation: abdomen normal to inspection and normal bowel sounds; abdomen not distended Percussion/Palpation: non tenderabdomen soft; no guarding, abdomen not rigid and no hepatosplenomegaly Skin: no rashes, warm and dry Neurologic: PERRL, EOMI, accommodation nl, no face palsy, no dysarthria Psychiatric: Orientation: alert and oriented x 3 Affect: + anxious affect Results & Data Results & Data ([facility]) Vital Signs (Past 12 Hours) Vital Signs Temp Pulse Pulse Resp BP BP Pulse Ox 08/26/20 22:47 36.5 C 98 H 14 142/84 H 95 08/26/20 20:34 36.6 C 109 H 14 118/76 95 08/26/20 14:59 104 H 08/26/20 14:37 36.7 C 104 H 18 143/82 H 95 08/26/20 11:08 36.7 C 102 H 18 124/74 93 PG Care Time/CCT Total # of Minutes Spent Total Time Spent with Patient: Total time spent is greater than 50% in coordination of care (as documented) at patient's floor/unit and/or counseling patient: Coding Level of Care Code 06144 Subseq Hosp Care Lvl 2 Diagnoses Alcohol withdrawal F10.239 Hyponatremia E87.1 Allergic rhinitis J30.9 GERD without esophagitis K21.9 Benign essential hypertension I10 Anxiety disorder F41.9
[2020-08-27] MEDS: GABAPENTIN 600 MG TAB PO SCH ×2 (02:21→11:03)
[2020-08-27] MEDS: ACETAMINOPHEN 325 MG TAB PO PRN ×2 (07:35→17:53)
[2020-08-27] MEDS: FLUTICASONE PROPIONATE NA SPR 16 GM BTL NAE SCH (07:36)
[2020-08-27] MEDS: FOLIC ACID 1 MG TAB PO SCH (07:36)
[2020-08-27] MEDS: FEXOFENADINE HCL 180 MG TAB PO SCH (07:38)
[2020-08-27] MEDS: PANTOprazole 40 MG TAB PO SCH (07:38)
[2020-08-27] MEDS: ESCITALOPRAM OXALATE 20 MG TAB PO SCH (07:39)
[2020-08-27] MEDS: THIAMINE HCL 100 MG TAB PO SCH (07:39)
[2020-08-27] MEDS: lisinopril 5 MG TAB PO SCH (07:39)
[2020-08-27] MEDS: LORazepam 1 MG/2 ML VIAL IV PRN (12:09)
[2020-08-27] MEDS ORDERED: dexAMETHasone 4 MG TAB PO ONE (20:00)
[2020-08-27] MEDS: traZODone HCL 100 MG TAB PO SCH (20:10)
[2020-08-27] MEDS: LORazepam 1 MG TAB PO PRN (20:10)
--- NOTE | 2020-08-27 21:51 | Hospitalist Progress Note ---
Date of Service August 27, 2020 Assessment & Plan (1) Alcohol withdrawal: Patient is a 65 year old female with PMHx Alcohol use disorder, Asthma, Anxiety, Depression, Hypertension that presented with concerns of alcohol withdrawal, last drink was around 10AM 08/24/20. Alcohol Withdrawal -Patient noting last drink 10AM 08/24/20 of 1 bottle of wine -Drinks roughly 2 bottles of wine or 30 beers daily for "several years" -Alcohol level on admission <3 will continue gabapentin taper and ativan scale. -Patient noting that she would want to go to rehab after this hospital stay -HR has been intermittently elevated. will continue to monitor patient. (2) Hyponatremia: Hyponatremia -Sodium 127 on admission -improved. (3) Allergic rhinitis: Allergic Asthma Patient is now having wheezing. concern over covid 19, may consider decadron. Ordered one time dose. -Albuterol PRN wheezing -Continue home Flonase -Continue home Lynette (4) GERD without esophagitis: GERD -Continue home pantoprazole HTN -Continue home Lisinopril (5) Benign essential hypertension: continue home meds. BP at goal. (6) Anxiety disorder: -Continue home Lexapro -Continue home Trazodone qhs Dispo: Med/Surg Telemetry FEN: Regular diet, NSS 100ml/hr DVT: Low risk, SCDs Code: DNR/DNI Admission and Anticipated Discharge Date Admission Date: August 24, 2020 Subjective Patient reports having a NONPRODUCTIVE cough. She denies any fever, chills, nausea, vomiting. Review of Systems Review of Systems: All systems reviewed & are unremarkable except as noted in HPI & below Physical Exam Physical Exam: Constitutional: no acute distress and not intoxicated appearing Eyes: PERRL, conjunctivae normal, anicteric sclerae ENMT: external ear and nose normal, oropharynx normal Respiratory: normal respiratory effort, WHEEZING Cardiovascular: Rate/Rhythm: + tachycardic Heart Sounds: normal S1 and normal S2; no murmur Gastrointestinal (Abdomen): Inspection/Auscultation: abdomen normal to inspection and normal bowel sounds; abdomen not distended Percussion/Palpation: non tenderabdomen soft; no guarding, abdomen not rigid and no hepatosplenomegaly Skin: no rashes, warm and dry Neurologic: PERRL, EOMI, accommodation nl, no face palsy, no dysarthria Psychiatric: Orientation: alert and oriented x 3 Affect: + anxious affect Results & Data Results & Data ([facility]) Vital Signs (Past 12 Hours) Vital Signs Temp Pulse Pulse Resp BP BP Pulse Ox 08/27/20 19:50 36.4 C L 98 H 17 132/84 94 08/27/20 17:00 108 H 08/27/20 14:59 36.5 C 111 H 18 135/82 93 08/27/20 11:01 36.4 C L 104 H 20 157/92 H 96 PG Care Time/CCT Total # of Minutes Spent Total Time Spent with Patient: Total time spent is greater than 50% in coordination of care (as documented) at patient's floor/unit and/or counseling patient: Coding Level of Care Code 61738 Subseq Hosp Care Lvl 3 Diagnoses Alcohol withdrawal F10.239 Hyponatremia E87.1 Allergic rhinitis J30.9 GERD without esophagitis K21.9 Benign essential hypertension I10 Anxiety disorder F41.9 Time Spent (min) 35
[2020-08-28] MEDS: PANTOprazole 40 MG TAB PO SCH (09:42)
[2020-08-28] MEDS: FOLIC ACID 1 MG TAB PO SCH (09:43)
[2020-08-28] MEDS: ESCITALOPRAM OXALATE 20 MG TAB PO SCH (09:43)
[2020-08-28] MEDS: FLUTICASONE PROPIONATE NA SPR 16 GM BTL NAE SCH (09:43)
[2020-08-28] MEDS: lisinopril 5 MG TAB PO SCH (09:43)
[2020-08-28] MEDS: THIAMINE HCL 100 MG TAB PO SCH (09:43)
[2020-08-28] MEDS: guaiFENesin/DEXTROM SYRUP 200MG/20MG 10ML UDC PO PRN (10:32)
[2020-08-28] MEDS ORDERED: GABAPENTIN 600 MG TAB PO SCH (12:00)
[2020-08-28] MEDS: FEXOFENADINE HCL 180 MG TAB PO SCH (12:52)
[2020-08-28] MEDS: ACETAMINOPHEN 325 MG TAB PO PRN (17:04)
[2020-08-28] MEDS: POLYETHYLENE (MIRALAX) 17 GM PACK PO SCH (17:04)
[2020-08-28] MEDS: LORazepam 1 MG TAB PO PRN (20:30)
[2020-08-28] MEDS: traZODone HCL 100 MG TAB PO SCH (20:34)
--- NOTE | 2020-08-28 22:45 | Hospitalist Progress Note ---
Date of Service August 28, 2020 Assessment & Plan (1) Alcohol withdrawal: Patient is a 65 year old female with PMHx Alcohol use disorder, Asthma, Anxiety, Depression, Hypertension that presented with concerns of alcohol withdrawal, last drink was around 10AM 08/24/20. Alcohol Withdrawal -Patient noting last drink 10AM 08/24/20 of 1 bottle of wine -Drinks roughly 2 bottles of wine or 30 beers daily for "several years" -Alcohol level on admission <3 will continue gabapentin taper and ativan scale. -Patient noting that she would want to go to rehab after this hospital stay: however not willing yo go to rehab in [place] Patient now wants to go home. -HR has been intermittently elevated but now in 90s. Plan will be to discharge tomorrow home as she no longer wants to go to rehab (2) Hyponatremia: Hyponatremia -Sodium 127 on admission -improved. (3) Allergic rhinitis: Allergic Asthma Patient is now having wheezing. concern over covid 19, may consider decadron. Ordered one time dose. repeated COVID testing was negative. Patient will have repeat testing on 08/31 due to possible exposure in hospital. -Albuterol PRN wheezing -Continue home Flonase -Continue home Lynette (4) GERD without esophagitis: GERD -Continue home pantoprazole HTN -Continue home Lisinopril (5) Benign essential hypertension: continue home meds. BP at goal. (6) Anxiety disorder: -Continue home Lexapro -Continue home Trazodone qhs Dispo: Med/Surg Telemetry FEN: Regular diet, NSS 100ml/hr DVT: Low risk, SCDs Code: DNR/DNI Admission and Anticipated Discharge Date Admission Date: August 24, 2020 Subjective Patient reports feeling well. She has no new complaints. Cough has decreased. Review of Systems Review of Systems: All systems reviewed & are unremarkable except as noted in HPI & below Physical Exam Physical Exam: Constitutional: no acute distress and not intoxicated appearing Eyes: PERRL, conjunctivae normal, anicteric sclerae ENMT: external ear and nose normal, oropharynx normal Respiratory: normal respiratory effort, WHEEZING Cardiovascular: Rate/Rhythm: + tachycardic Heart Sounds: normal S1 and normal S2; no murmur Gastrointestinal (Abdomen): Inspection/Auscultation: abdomen normal to inspection and normal bowel sounds; abdomen not distended Percussion/Palpation: non tenderabdomen soft; no guarding, abdomen not rigid and no hepatosplenomegaly Skin: no rashes, warm and dry Neurologic: PERRL, EOMI, accommodation nl, no face palsy, no dysarthria Psychiatric: Orientation: alert and oriented x 3 Affect: + anxious affect Results & Data Results & Data ([facility]) Vital Signs (Past 12 Hours) Vital Signs Temp Pulse Pulse Resp BP Pulse Ox 08/28/20 19:25 36.7 C 106 H 18 133/75 95 08/28/20 16:44 105 H 08/28/20 15:30 36.5 C 116 H 18 157/90 H 96 08/28/20 11:58 36.6 C 111 H 18 155/88 H 97 PG Care Time/CCT Total # of Minutes Spent Total Time Spent with Patient: Total time spent is greater than 50% in coordinat ion of care (as documented) at patient's floor/unit and/or counseling patient: Coding Level of Care Code 13840 Subseq Hosp Care Lvl 2 Diagnoses Alcohol withdrawal F10.239 Hyponatremia E87.1 Allergic rhinitis J30.9 GERD without esophagitis K21.9 Benign essential hypertension I10 Anxiety disorder F41.9 Time Spent (min) 25
[2020-08-29] MEDS: FLUTICASONE PROPIONATE NA SPR 16 GM BTL NAE SCH (08:21)
[2020-08-29] MEDS: POLYETHYLENE (MIRALAX) 17 GM PACK PO SCH (08:21)
[2020-08-29] MEDS: ACETAMINOPHEN 325 MG TAB PO PRN (08:23)
[2020-08-29] MEDS: lisinopril 5 MG TAB PO SCH (08:24)
[2020-08-29] MEDS: ESCITALOPRAM OXALATE 20 MG TAB PO SCH (08:24)
[2020-08-29] MEDS: THIAMINE HCL 100 MG TAB PO SCH (08:24)
[2020-08-29] MEDS: FOLIC ACID 1 MG TAB PO SCH (08:24)
[2020-08-29] MEDS: FEXOFENADINE HCL 180 MG TAB PO SCH (08:25)
[2020-08-29] MEDS: PANTOprazole 40 MG TAB PO SCH (09:34)
--- NOTE | 2020-08-29 18:15 | Discharge Summary ---
Date of Service August 29, 2020 Admission HPI Per Admitting Provider Patient is a 65 year old female with PMHx Alcohol use disorder, Asthma, Anxiety, Depression, Hypertension that presented with concerns of alcohol withdrawal, last drink was around 10AM 08/24/20. Patient notes that 3 days ago she had been drinking wine and moonshine when she had "multiple episodes of bloody vomit." Patient was unable to determine amount of blood that was excreted. She states that during that time she also had visual hallucinations, though cannot recall what she had seen. She notes a longstanding history of alcohol use and that she typically will do 2 bottles of wine daily or 30 beers. She notes that she also had a single bout of bloody emesis yesterday, but that it was minimal compared to 3 days ago. Patients last drink was around 10AM today which was 1 bottle of wine. She notes currently that she is feeling "shaky" with nausea and 1x episode of mucus emesis prior to my arrival to the room. She also notes urinary hesitancy, but denies any dysuria. She states she is interested in "detox" and for admission to a rehab facility after discharge. She had last undergone rehab 15 years ago and was sober for 2 months after that discharge. Currently otherwise denies any fever, chills, sob, chest pain, abdominal pain at rest, constipation, hallucinations. She has never had a seizure due to withdrawals. Med Hx: Asthma, Anxiety, Depression, HTN, Alcohol use disorder Surg hx: Cholecystectomy Family Hx: Uncle and Son alcohol use disorder Principal Diagnosis Alcohol withdrawal Discharge Exam Constitutional WD/WN, vitals as above Eyes EOM intact bilaterally; no conjunctival abnormality ENMT external ear and nose normal, oropharynx normal Neck trachea midline, no thyromegaly normal visual inspection Respiratory normal respiratory effort, lungs clear to auscultation no respiratory distress Cardiovascular RRR, no murmur, no edema Gastrointestinal (Abdomen) Inspection/Auscultation: abdomen normal to inspection; abdomen not distended Musculoskeletal no cyanosis or clubbing, extremities motor strength 5/5 Skin no rashes, warm and dry Neurologic moves all extremities and awake Psychiatric Orientation: alert, oriented to person and cooperative Discharge Data Allergies Allergy/AdvReac Type Severity Reaction Status Date / Time No Known Allergies Allergy Verified 08/24/20 19:34 Consultations 08/24/20 19:22 ED Decision to Admit Stat 08/24/20 22:28 Consult Case Management - Discharge Planning Routine Hospital Course (1) Alcohol withdrawal: Patient is a 65 year old female with PMHx Alcohol use disorder, Asthma, Anxiety, Depression, Hypertension that presented with concerns of alcohol withdrawal, last drink was around 10AM 08/24/20. Alcohol Withdrawal -Patient noting last drink 10AM 08/24/20 of 1 bottle of wine -Drinks roughly 2 bottles of wine or 30 beers daily for "several years" -Alcohol level on admission <3 will continue gabapentin taper and ativan scale. -Patient noting that she would want to go to rehab after this hospital stay: however not willing yo go to rehab in [place] Patient now wants to go home. -HR has been intermittently elevated but now in 90s. Plan will be to discharge tomorrow home as she no longer wants to go to rehab (2) Hyponatremia: Hyponatremia -Sodium 127 on admission -improved. (3) Allergic rhinitis: Allergic Asthma Patient is now having wheezing. concern over covid 19, may consider decadron. Ordered one time dose. repeated COVID testing was negative. Patient will have repeat testing on 08/31 due to possible exposure in hospital. -Albuterol PRN wheezing -Continue home Flonase -Continue home Lynette (4) GERD without esophagitis: GERD -Continue home pantoprazole HTN -Continue home Lisinopril (5) Benign essential hypertension: continue home meds. BP at goal. (6) Anxiety disorder: -Continue home Lexapro -Continue home Trazodone qhs Dispo: Med/Surg Telemetry FEN: Regular diet, NSS 100ml/hr DVT: Low risk, SCDs Code: DNR/DNI Total Time Total Time Spent Total Time Spent (In Minutes): 35 Discharge Plan Discharge Items Patient Disposition: Home - Self-Care Reason For Visit: ALCOHOL WITHDRAWAL Discharge Diagnosis: Alcohol withdrawal Activity: Resume your previous activity Non-emergency contact: Primary Care Provider Call non-emergency contact if: your pain is not controlled Follow-up/Referrals: Dinah Carranza DO [Primary Care Provider] - 09/05/20 8:15 am (You have an appt with Jose Carlos Hays on 09/05 at 0815am. Please arrive 15 minutes prior to your appt. It is important that you keep this appt. If for any reason this appt does not fit your schedule please call [phone] to reschedule. ) Diet: Regular Addtl Attending Provider Instructions: Please avoid any alcohol intake as this was the main cause of your trouble. You are on an anti-anxiety medication called Lexapro. You are on the highest possible dose at this time. Please discuss with Dr. Carranza regarding any additional medication for your anxiety. Pending Studies at Discharge: No Stand-Alone Forms: My [facility], Smoking Cessation Medications and DC Order Prescriptions: Continued lisinopril 5 mg tablet 5 mg PO DAILY Qty: 30 RF: 5 pantoprazole 40 mg tablet,delayed release (DR/EC) 40 mg PO DAILY Qty: 90 RF: 3 fexofenadine 180 mg tablet 180 mg PO DAILY Qty: 30 RF: 5 escitalopram oxalate [Lexapro] 20 mg tablet 20 mg PO DAILY Qty: 30 RF: 5 trazodone 50 mg tablet See Rx Instructions .ROUTE .COMPLEX Qty: 180 RF: 1 cholecalciferol (vitamin D3) 2,000 unit tablet 2,000 units PO DAILY Qty: 30 RF: 0 fluticasone propionate 50 mcg/actuation spray,suspension 2 spray INTNAS DAILY Qty: 16 RF: 2 benzonatate [Tessalon Perles] 100 mg capsule 100 mg PO TID PRN (Reason: cough) Qty: 30 RF: 0 albuterol sulfate [Ventolin HFA] 90 mcg/actuation HFA aerosol inhaler 2 puffs INH QID Qty: 8 RF: 3 Discharge Orders: Discharge Order (Routine); Ordered 08/29/20 Ordered By: Jerry Paniagua Admission Data Admit Date/Time: 08/24/20 20:18 Attending Provider: Jerry Paniagua Admit Provider: Peyman Haile Primary Care Provider: Dinah Carranza Other Providers: Jerry Paniagua Other Interventions: Discharge Summary Assessment (RN) Last Done: 08/29/20 12:24 Coding Level of Care Code D/C Day Management >30 mins Diagnoses Alcohol withdrawal F10.239 Hyponatremia E87.1 Allergic rhinitis J30.9 GERD without esophagitis K21.9 Benign essential hypertension I10 Anxiety disorder F41.9
== END 2020-08-29 13:48 | disposition home or self-care (01) | DRG 897 ==
LOC: ED 17:06 → SUATTDRO 20:18 → 2N 20:18

== ENCOUNTER 2020-12-31 11:25 | Inpatient (IN) ==
[2020-12-31] MEDS ORDERED: SODIUM CHLORIDE 0.9% 1000ML 1,000 ML IV ONE (11:42)
[2020-12-31] MEDS ORDERED: ONDANSETRON INJ 2 MG/ML 2 ML VIAL IV STA (11:42)
[2020-12-31 12:04] LABS: Basophils # (auto) 0.02 K/uL (0-0.2); Basophils % (auto) 0.2 %; Eosinophils # (auto) 0.01 K/uL (0-0.5); Eosinophils % (auto) 0.1 %; Hematocrit (blood only) 37.2 % (37-47); Hemoglobin 12.7 g/dL (12.0-16.0); Immature Granulocytes # (auto) 0.01 K/uL (0.00-0.02); Immature Granulocytes % (auto) 0.1 %; Lymphocytes # (auto) 0.79 K/uL (1.2-3.4); Lymphocytes % (auto) 9.1 %; Mean Corpuscular Hemoglobin 29.9 pg (25-34); Mean Corpuscular Hgb Conc 34.1 g/dL (32-36); Mean Corpuscular Volume 87.5 fL (80-100); Mean Platelet Volume 8.3 fL (7.4-10.4); Monocytes # (auto) 0.69 K/uL (0.11-0.59); Neutrophils # (auto) 7.15 K/uL (1.4-6.5); Neutrophils % (auto) 82.5 %; Platelet Count 438 K/uL (130-400); RDW Coefficient of Variation 13.7 % (11.5-14.5); RDW Standard Deviation 44.4 fL (36.4-46.3); Red Blood Count 4.25 M/uL (4.2-5.4); White Blood Count 8.67 K/uL (4.8-10.8)
[2020-12-31] MEDS ORDERED: LORazepam 1 MG/2 ML VIAL IV STA ×2 (12:09→13:38)
--- NOTE | 2020-12-31 12:11 | XRay Report ---
XR chest 1V portable CLINICAL HISTORY: fall etoh COMPARISON STUDY: Chest radiograph August 24, 2020. FINDINGS: Lung volumes are normal. Linear left basilar opacity represents atelectasis or scarring. Th ere is no pneumothorax or pleural effusion. Cardiac size is normal. Mediastinal contours are normal. There is no evidence for pulmonary edema. Incidental note is made of S-shaped scoliosis of the thorac olumbar spine as well as cholecystectomy clips. IMPRESSION: No acute cardiopulmonary findings. ACT 112: Negative or not required by law. Electronically signed by: Mikey Trujillo M.D. 12/31/2020 12:10 PM
[2020-12-31 12:14] LABS: Partial Thromboplastin Ratio 1.1; Partial Thromboplastin Time 28.3 Seconds (21.0-31.0); Prothrombin Time 10.3 Seconds (9.0-12.0)
--- NOTE | 2020-12-31 12:19 | CT Scan Report ---
CT OF THE HEAD WITHOUT CONTRAST CLINICAL HISTORY: fall etoh COMPARISON STUDY: No previous studies for comparison. TECHNIQUE: Helical axial images of the head were obtained without IV contrast. Automated exposure con trol was utilized for the study. A dose lowering technique was utilized adhering to the principles o f ALARA. FINDINGS: No acute intracranial hemorrhage, midline shift or mass effect is present. The ventricular system is unremarkable. The basal cisterns are patent. No extra-axial collections are present. There are no findings to suggest acute dural sinus thrombosis or acute territorial infarct. There is no demond varial fracture. Visualized portions of the sinuses and mastoid air cells are clear. IMPRESSION: No acute intracranial findings. ACT 112: Negative or not required by law. Electronically signed by: Mikey Trujillo M.D. 12/31/2020 12:17 PM
[2020-12-31 12:22] LABS: BUN Creatinine Ratio 9.4 (10-20); Bilirubin Direct 0.3 mg/dl (0-0.2); Calcium 8.7 mg/dl (8.5-10.1); Creatinine Clr Calc Pharmacy 87.3 ml/min; Est GFR (African American) 106.6 ml/min; Magnesium 2.4 mg/dl (1.8-2.4); Potassium 3.6 mmol/L (3.5-5.1)
[2020-12-31 12:24] LABS: Bilirubin,Total 1.1 mg/dl (0.2-1); Total Protein 7.4 gm/dl (6.4-8.2)
--- NOTE | 2020-12-31 12:29 | CT Scan Report ---
CT OF THE CERVICAL SPINE WITHOUT CONTRAST CLINICAL HISTORY: fall etoh COMPARISON STUDY: No previous studies for comparison. TECHNIQUE: Helical axial images of the cervical spine were obtained without IV contrast. Sagittal a nd coronal reconstructions were viewed. Automated exposure control was utilized for the study. A do se lowering technique was utilized adhering to the principles of ALARA. FINDINGS: Alignment of the cervical spine is anatomic. Vertebral body heights are maintained. No acut e cervical spine fracture or subluxation is present. There is no prevertebral edema. Facet joints are intact. Note is made of moderate to severe multilevel facet arthrosis. There is moderate disc space narrowing with osteophytosis at C5-C6. IMPRESSION: No acute cervical spine fracture or subluxation. ACT 112: Negative or not required by law. Electronically signed by: Mikey Trujillo M.D. 12/31/2020 12:28 PM
[2020-12-31 13:09] LABS: Appearance Urine Cloudy (Clear); Bacteria Urine Automated 4+ (Negative); Bilirubin Urine Negative (Negative); Blood Urine Negative (Negative); Color Urine Yellow; Epithelial Cell Urine Auto >30 /lpf (0-5); Glucose Urine UA Negative (Negative); Ketones Urine Trace (Negative); Leukocyte Esterase Urine 3+ (Negative); Nitrite Urine Positive (Negative); Protein Urine Negative (Negative); RBC Urine Automated 0-4 /hpf (0-4); Specific Gravity Urine 1.011 (1.000-1.030); Urobilinogen Urine Negative (Negative); WBC Urine Automated >30 /hpf (0-5); pH Urine 6.5 (4.5-7.5)
--- NOTE | 2020-12-31 14:03 | Emergency Department Note ---
History of Present Illness General Chief complaint: Arrhythmia/Palpitations Stated complaint: SHAKY, FAST HEART RATE, DIZZY Time Seen by Provider: 12/31/20 11:37 History of Present Illness Provider complaint: Alcohol abuse shaky fall palpitations Onset (ago): day(s) 2 65-year-old female presents emergency department for palpitations shakiness and alcohol abuse. Patient states she has been drinking alcohol excessively since . Patient states she is on average drinks at least a sixpack a day and she also states she has been drinking hard liquor including fireball and her 's moonshine every day. Patient states that she fell recently. She reports she hit the front of her chest. She states she is not sure if she hit her head. She states she feels like her heart is racing. Patient states she also feels like she is getting the shakes. Patient states she is not drinking to try to harm herself but she is interested in inpatient rehab treatment. Patient states she did drink prior to arrival to the emergency department. Home Medications Medication Instructions Recorded Confirmed Type albuterol sulfate 90 mcg/actuation 2 puff INH QID #8 gm 09/05/20 12/31/20 Rx aerosol inhaler lorazepam 0.5 mg tablet 0.5 mg PO DAILY PRN #10 tab 09/05/20 12/31/20 Rx escitalopram oxalate [Lexapro] 20 mg PO [facility] 12/31/20 12/31/20 History fexofenadine 180 mg PO [facility] 12/31/20 12/31/20 History fluticasone propionate 2 spray INTNAS [facility] 12/31/20 12/31/20 History lisinopril 5 mg PO [facility] 12/31/20 12/31/20 History pantoprazole 40 mg PO QA 12/31/20 12/31/20 History trazodone 100 mg PO HS 12/31/20 12/31/20 History Allergies Allergy/AdvReac Type Severity Reaction Status Date / Time No Known Allergies Allergy Verified 12/31/20 13:52 Past Med/Surg History Medical History Alcohol withdrawal Allergic rhinitis Anemia Anxiety disorder Benign essential hypertension Depression Diverticulosis Elevated platelet count Elevated vitamin B12 level GERD without esophagitis Melanoma in situ Sinusitis, chronic Sleep disturbance Tubular adenoma of colon Vitamin D deficiency Surgical History H/O: hysterectomy History of cholecystectomy History of sinus surgery History of tonsillectomy Family History Grandmother (Paternal) Colon cancer Father Cardiac disorder Sister Lung cancer Grandfather Lung cancer Grandmother (Maternal) Breast cancer Mother Ovarian cancer Denies family history of Prostate cancer Social History Smoking Status: Never smoker Second Hand Exposure: No; Hx Alcohol Use: Yes Alcohol type: wine Alcohol type Comment: 12 beers Hx Substance Use: No Preferred Language: [place] Communication Ability: Effective Visual Impairment: No Limitations Hearing Ability: Normal Finish Rolls Operator Required: No Beliefs That Will Affect Care: None marital status: Current Living Situation: Spouse current occupational status: other other: homemaker Feels Safe at Home: Yes Childhood Exposure to Second-Hand Smoke: Yes caffeine: Yes (coffee) during the past year weight has: remained stable Dental Care, Regularly: Yes Physical Activity Frequency: Daily Seatbelt Use: always Sunscreen Use: Yes Assistive Devices: Glasses Review of Systems A total of 10 systems reviewed and were otherwise negative Physical Exam Vital Signs Vital Signs - 24 hr 12/31/20 11:28 12/31/20 11:37 12/31/20 11:38 Temperature 36.8 C Temperature Source Temporal Artery Scan Pulse Rate 115 H 105 H Pulse Rate [Apical] 103 H Pulse Rate from SpO2 Sensor 104 H Pulse Rhythm Pulse Rhythm [Apical] Regular Respiratory Rate 14 20 21 Respiratory Effort / Characteristics Non-Labored Non-Labored Respiratory Depth Normal Normal Respiratory Pattern Regular Blood Pressure 133/86 173/98 H Blood Pressure [Right Arm] 173/98 H Blood Pressure Mean 101 123 Blood Pressure Mean [Right Arm] 123 Blood Pressure Position [Right Arm] Sitting Pulse Oximetry 97 96 96 Oxygen Delivery Method Room Air Room Air Sepsis New/Unexplained Change in Mental Status No Sepsis Action Taken by Nursing No Action Required 12/31/20 12:00 12/31/20 12:04 12/31/20 12:30 Temperature Temperature Source Pulse Rate 101 H 103 H 92 H Pulse Rate [Apical] Pulse Rate from SpO2 Sensor 101 H 91 H Pulse Rhythm Regular Pulse Rhythm [Apical] Respiratory Rate 20 18 24 Respiratory Effort / Characteristics Respiratory Depth Respiratory Pattern Blood Pressure 175/102 H 170/84 H Blood Pressure [Right Arm] Blood Pressure Mean 126 112 Blood Pressure Mean [Right Arm] Blood Pressure Position [Right Arm] Pulse Oximetry 96 96 92 Oxygen Delivery Method Room Air Sepsis New/Unexplained Change in Mental Status Sepsis Action Taken by Nursing 12/31/20 13:25 Temperature Temperature Source Pulse Rate Pulse Rate [Apical] 90 Pulse Rate from SpO2 Sensor Pulse Rhythm Pulse Rhythm [Apical] Respiratory Rate 18 Respiratory Effort / Characteristics Respiratory Depth Respiratory Pattern Blood Pressure Blood Pressure [Right Arm] 153/80 H Blood Pressure Mean Blood Pressure Mean [Right Arm] 104 Blood Pressure Position [Right Arm] Pulse Oximetry 94 Oxygen Delivery Method Sepsis New/Unexplained Change in Mental Status Sepsis Action Taken by Nursing Physical Exam GENERAL: She is oriented to person, place, and time. She appears well-developed and well-nourished. She does not appear distressed. HENT: Exam performed. -Head: Normocephalic and atraumatic. -Right Ear: External ear normal. No mastoid tenderness. -Left Ear: External ear normal. No mastoid tenderness. -Mouth/Throat: The oropharynx is clear and moist. No trismus in the jaw. No dental abscesses or uvula swelling. No oropharyngeal exudate or tonsillar abscesses. EYES: Conjunctivae and EOM are normal. Pupils are equal, round, and reactive to light. Right eye exhibits no discharge. Left eye exhibits no discharge. No scleral icterus. NECK: Normal range of motion. Neck supple. No JVD present. No spinous process tenderness present. No carotid bruit present. No rigidity. No tracheal deviation and normal range of motion present. No Brudzinski's sign and no Kernig's sign noted. CV: Tachycardic rate, regular rhythm, normal heart sounds and intact distal pulses. There is no peripheral edema. Palpable radial pulses bue. PULM/CHEST: Effort normal and breath sounds normal. No respiratory distress. No stridor. She has no wheezes. She has no rales. -Chest Wall: She exhibits no tenderness. ABD: The abdomen is soft. Bowel sounds are normal. She has no distension. No mass is present. There is no tenderness. There is no rebound, no guarding, no Ramirez's sign and no tenderness at McBurney's point. Rovsig negative MUSC/SKEL: Normal range of motion. There is no peripheral edema, tenderness or deformity. LYMPH: No cervical adenopathy. NEURO: She is alert and oriented to person, place, and time. She has normal strength. No cranial nerve deficit or sensory deficit. Coordination and gait normal. GCS eye subscore is 4. GCS verbal subscore is 5. GCS motor subscore is 6. Cerebellar tests wnl. Mild tremor. SKIN: Skin is warm and dry. She is not diaphoretic. PSYCH: She has a normal mood and affect. Behavior is normal. Judgment and thought content normal. Course Course 1137: The patient was evaluated in room C8. A complete history and physical exam was performed Cardiac monitoring: An order was placed for continuous cardiac monitoring. The monitor shows a rate of 110 with sinus tachycardia rhythm 1400: Vital signs stable. Patient states she still feels shaky. Labs within normal limits including a negative osmolar and anion gap. Serum EtOH is 64. Kyle kruse required multiple doses of Ativan in the emergency department. [facility]. Administered Medications Discontinued Medications Sodium Chloride (Nss 1000ml) 1,000 mls @ 999 mls/hr IV .Q1H1M ONE Stop: 12/31/20 12:42 Last Infusion: 12/31/20 13:25 Dose: 0 mls/hr Documented by: [id number] Admin: 12/31/20 11:58 Dose: 999 mls/hr Documented by: [id number] Lorazepam (Ativan) 1 mg in 2 mls @ 2 mls/min IV NOW STA Stop: 12/31/20 12:10 Last Admin: 12/31/20 12:17 Dose: 2 mls/min Documented by: [id number] Ondansetron HCl (Ondansetron Inj 2 Mg/Ml 2 Ml Vial) 4 mg IV NOW STA Stop: 12/31/20 11:43 Last Admin: 12/31/20 11:58 Dose: 4 mg Documented by: [id number] Medical Decision Making Laboratory Data Result diagrams: 12/31/20 11:49 12/31/20 11:49 Lab Results 12/31/20 12/31/20 12/31/20 Range/Units 11:49 11:49 11:49 WBC 8.67 (4.8-10.8) K/uL RBC 4.25 (4.2-5.4) M/uL Hgb 12.7 (12.0-16.0) g/dL Hct 37.2 (37-47) % MCV 87.5 (80-100) fL MCH 29.9 (25-34) pg MCHC 34.1 (32-36) g/dL RDW Std Deviation 44.4 (36.4-46.3) fL RDW Coeff of Cory 13.7 (11.5-14.5) % Plt Count 438 H (130-400) K/uL MPV 8.3 (7.4-10.4) fL Immature Gran % (Auto) 0.1 % Neut % (Auto) 82.5 % Lymph % (Auto) 9.1 % Gilchrist % (Auto) 8.0 % Eos % (Auto) 0.1 % Baso % (Auto) 0.2 % Neut # (Auto) 7.15 H (1.4-6.5) K/uL Lymph # (Auto) 0.79 L (1.2-3.4) K/uL Gilchrist # (Auto) 0.69 H (0.11-0.59) K/uL Eos # (Auto) 0.01 (0-0.5) K/uL Baso # (Auto) 0.02 (0-0.2) K/uL Immature Gran # (Auto) 0.01 (0.00-0.02) K/uL PT 10.3 (9.0-12.0) Seconds INR 1.0 (0.9-1.1) APTT 28.3 (21.0-31.0) Seconds PTT Ratio 1.1 Sodium 134 L (136-145) mmol/L Potassium 3.6 (3.5-5.1) mmol/L Chloride 98 (98-107) mmol/L Carbon Dioxide 27 (21-32) mmol/L Anion Gap 9.0 (3-11) BUN 6 L (7-18) mg/dl Creatinine 0.69 (0.6-1.2) mg/dl Est Cr Clr Drug Dosing 87.3 ml/min Est GFR ( Amer) 106.6 ml/min Est GFR (Non-Af Amer) 92.0 ml/min BUN/Creatinine Ratio 9.4 L (10-20) Glucose 140 H (70-99) mg/dl Osmolality (280-300) mOsm/kg Calcium 8.7 (8.5-10.1) mg/dl Magnesium 2.4 (1.8-2.4) mg/dl Total Bilirubin 1.1 H (0.2-1) mg/dl Direct Bilirubin 0.3 H (0-0.2) mg/dl AST 25 (15-37) U/L ALT 35 (12-78) U/L Alkaline Phosphatase 72 (45-117) U/L Total Protein 7.4 (6.4-8.2) gm/dl Albumin 4.0 (3.4-5.0) gm/dl Lipase 192 (73-393) U/L Urine Color Urine Appearance (Clear) Urine pH (4.5-7.5) Ur Specific Vanderwagen (1.000-1.030) Urine Protein (Negative) Urine Glucose (UA) (Negative) Urine Ketones (Negative) Urine Blood (Negative) Urine Nitrite (Negative) Urine Bilirubin (Negative) Urine Urobilinogen (Negative) Ur Leukocyte Esterase (Negative) Urine WBC (Auto) (0-5) /hpf Urine RBC (Auto) (0-4) /hpf U Hyaline Cast (Auto) (0-5) /lpf U Epithel Cells (Auto) (0-5) /lpf Urine Bacteria (Auto) (Negative) Ethyl Alcohol mg/dL (0-3) mg/dl COVID-19 Eval Order 12/31/20 12/31/20 12/31/20 Range/Units 11:49 11:49 12:31 WBC (4.8-10.8) K/uL RBC (4.2-5.4) M/uL Hgb (12.0-16.0) g/dL Hct (37-47) % MCV (80-100) fL MCH (25-34) pg MCHC (32-36) g/dL RDW Std Deviation (36.4-46.3) fL RDW Coeff of Cory (11.5-14.5) % Plt Count (130-400) K/uL MPV (7.4-10.4) fL Immature Gran % (Auto) % Neut % (Auto) % Lymph % (Auto) % Gilchrist % (Auto) % Eos % (Auto) % Baso % (Auto) % Neut # (Auto) (1.4-6.5) K/uL Lymph # (Auto) (1.2-3.4) K/uL Gilchrist # (Auto) (0.11-0.59) K/uL Eos # (Auto) (0-0.5) K/uL Baso # (Auto) (0-0.2) K/uL Immature Gran # (Auto) (0.00-0.02) K/uL PT (9.0-12.0) Seconds INR (0.9-1.1) APTT (21.0-31.0) Seconds PTT Ratio Sodium (136-145) mmol/L Potassium (3.5-5.1) mmol/L Chloride (98-107) mmol/L Carbon Dioxide (21-32) mmol/L Anion Gap (3-11) BUN (7-18) mg/dl Creatinine (0.6-1.2) mg/dl Est Cr Clr Drug Dosing ml/min Est GFR ( Amer) ml/min Est GFR (Non-Af Amer) ml/min BUN/Creatinine Ratio (10-20) Glucose (70-99) mg/dl Osmolality 291 (280-300) mOsm/kg Calcium (8.5-10.1) mg/dl Magnesium (1.8-2.4) mg/dl Total Bilirubin (0.2-1) mg/dl Direct Bilirubin (0-0.2) mg/dl AST (15-37) U/L ALT (12-78) U/L Alkaline Phosphatase (45-117) U/L Total Protein (6.4-8.2) gm/dl Albumin (3.4-5.0) gm/dl Lipase (73-393) U/L Urine Color Yellow Urine Appearance Cloudy A (Clear) Urine pH 6.5 (4.5-7.5) Ur Specific Vanderwagen 1.011 (1.000-1.030) Urine Protein Negative (Negative) Urine Glucose (UA) Negative (Negative) Urine Ketones Trace H (Negative) Urine Blood Negative (Negative) Urine Nitrite Positive A (Negative) Urine Bilirubin Negative (Negative) Urine Urobilinogen Negative (Negative) Ur Leukocyte Esterase 3+ H (Negative) Urine WBC (Auto) >30 H (0-5) /hpf Urine RBC (Auto) 0-4 (0-4) /hpf U Hyaline Cast (Auto) 1-5 (0-5) /lpf U Epithel Cells (Auto) >30 H (0-5) /lpf Urine Bacteria (Auto) 4+ H (Negative) Ethyl Alcohol mg/dL 62.0 H (0-3) mg/dl COVID-19 Eval Order 12/31/20 Range/Units 13:48 WBC (4.8-10.8) K/uL RBC (4.2-5.4) M/uL Hgb (12.0-16.0) g/dL Hct (37-47) % MCV (80-100) fL MCH (25-34) pg MCHC (32-36) g/dL RDW Std Deviation (36.4-46.3) fL RDW Coeff of Cory (11.5-14.5) % Plt Count (130-400) K/uL MPV (7.4-10.4) fL Immature Gran % (Auto) % Neut % (Auto) % Lymph % (Auto) % Gilchrist % (Auto) % Eos % (Auto) % Baso % (Auto) % Neut # (Auto) (1.4-6.5) K/uL Lymph # (Auto) (1.2-3.4) K/uL Gilchrist # (Auto) (0.11-0.59) K/uL Eos # (Auto) (0-0.5) K/uL Baso # (Auto) (0-0.2) K/uL Immature Gran # (Auto) (0.00-0.02) K/uL PT (9.0-12.0) Seconds INR (0.9-1.1) APTT (21.0-31.0) Seconds PTT Ratio Sodium (136-145) mmol/L Potassium (3.5-5.1) mmol/L Chloride (98-107) mmol/L Carbon Dioxide (21-32) mmol/L Anion Gap (3-11) BUN (7-18) mg/dl Creatinine (0.6-1.2) mg/dl Est Cr Clr Drug Dosing ml/min Est GFR ( Amer) ml/min Est GFR (Non-Af Amer) ml/min BUN/Creatinine Ratio (10-20) Glucose (70-99) mg/dl Osmolality (280-300) mOsm/kg Calcium (8.5-10.1) mg/dl Magnesium (1.8-2.4) mg/dl Total Bilirubin (0.2-1) mg/dl Direct Bilirubin (0-0.2) mg/dl AST (15-37) U/L ALT (12-78) U/L Alkaline Phosphatase (45-117) U/L Total Protein (6.4-8.2) gm/dl Albumin (3.4-5.0) gm/dl Lipase (73-393) U/L Urine Color Urine Appearance (Clear) Urine pH (4.5-7.5) Ur Specific Vanderwagen (1.000-1.030) Urine Protein (Negative) Urine Glucose (UA) (Negative) Urine Ketones (Negative) Urine Blood (Negative) Urine Nitrite (Negative) Urine Bilirubin (Negative) Urine Urobilinogen (Negative) Ur Leukocyte Esterase (Negative) Urine WBC (Auto) (0-5) /hpf Urine RBC (Auto) (0-4) /hpf U Hyaline Cast (Auto) (0-5) /lpf U Epithel Cells (Auto) (0-5) /lpf Urine Bacteria (Auto) (Negative) Ethyl Alcohol mg/dL (0-3) mg/dl COVID-19 Eval Order Covid19 at [facility] Imaging Data Radiologist's Impression: Head CT 12/31/20 11:38 CT OF THE HEAD WITHOUT CONTRAST CLINICAL HISTORY: fall etoh COMPARISON STUDY: No previous studies for comparison. TECHNIQUE: Helical axial images of the head were obtained without IV contrast. Automated exposure control was utilized for the study. A dose lowering technique was utilized adhering to the principles of ALARA. FINDINGS: No acute intracranial hemorrhage, midline shift or mass effect is present. The ventricular system is unremarkable. The basal cisterns are patent. No extra-axial collections are present. There are no findings to suggest acute dural sinus thrombosis or acute territorial infarct. There is no calvarial fracture. Visualized portions of the sinuses and mastoid air cells are clear. IMPRESSION: No acute intracranial findings. ACT 112: Negative or not required by law. Electronically signed by: Mikey Trujillo M.D. 12/31/2020 12:[address] 12/31/20 11:45 CT OF THE CERVICAL SPINE WITHOUT CONTRAST CLINICAL HISTORY: fall etoh COMPARISON STUDY: No previous studies for comparison. TECHNIQUE: Helical axial images of the cervical spine were obtained without IV contrast. Sagittal and coronal reconstructions were viewed. Automated exposure control was utilized for the study. A dose lowering technique was utilized adhering to the principles of ALARA. FINDINGS: Alignment of the cervical spine is anatomic. Vertebral body heights are maintained. No acute cervical spine fracture or subluxation is present. There is no prevertebral edema. Facet joints are intact. Note is made of moderate to severe multilevel facet arthrosis. There is moderate disc space narrowing with osteophytosis at C5-C6. IMPRESSION: No acute cervical spine fracture or subluxation. ACT 112: Negative or not required by law. Electronically signed by: Mikey Trujillo M.D. 12/31/2020 12:28 PM Chest X-Ray 12/31/20 11:45 XR chest 1V portable CLINICAL HISTORY: fall etoh COMPARISON STUDY: Chest radiograph August 24, 2020. FINDINGS: Lung volumes are normal. Linear left basilar opacity represents atelectasis or scarring. There is no pneumothorax or pleural effusion. Cardiac size is normal. Mediastinal contours are normal. There is no evidence for pulmonary edema. Incidental note is made of S-shaped scoliosis of the thoracolumbar spine as well as cholecystectomy clips. IMPRESSION: No acute cardiopulmonary findings. ACT 112: Negative or not required by law. Electronically signed by: Mikey Trujillo M.D. 12/31/2020 12:10 PM [facility] Narrative 1137: The patient was evaluated in room C8. A complete history and physical exam was performed Cardiac monitoring: An order was placed for continuous cardiac monitoring. The monitor shows a rate of 110 with sinus tachycardia rhythm 1400: Vital signs stable. Patient states she still feels shaky. Labs within normal limits including a negative osmolar and anion gap. Serum EtOH is 64. Patient required multiple doses of Ativan in the emergency department. [facility]. Carrillo notified. Impression & Plan DTs (delirium tremens) Discharge Plan Visit Data Chief Complaint: Arrhythmia/Palpitations Stated Complaint: SHAKY, FAST HEART RATE, DIZZY ED Provider: Donnell Liu Discharge Problem: DTs (delirium tremens) Patient Disposition: Admitted As Inpatient Forms Stand Alone Forms: [facility] Prescriptions Prescriptions: No Action lorazepam 0.5 mg tablet 0.5 mg PO DAILY PRN (Reason: anxiety) Qty: 10 RF: 0 albuterol sulfate [Ventolin HFA] 90 mcg/actuation HFA aerosol inhaler 2 puff INH QID Qty: 8 RF: 3 trazodone 50 mg tablet 100 mg PO HS RF: 0 fexofenadine 180 mg tablet 180 mg PO QAM RF: 0 pantoprazole 40 mg tablet,delayed release (DR/EC) 40 mg PO QAM RF: 0 lisinopril 5 mg tablet 5 mg PO QAM RF: 0 fluticasone propionate 50 mcg/actuation spray,suspension 2 spray INTNAS QAM RF: 0 escitalopram oxalate [Lexapro] 20 mg tablet 20 mg PO QAM RF: 0 Referrals Referrals: Dinah Carranza DO [Primary Care Provider] -
--- NOTE | 2020-12-31 14:08 | History & Physical Report ---
Date of Service December 31, 2020 Assessment & Plan (1) Alcohol withdrawal: Ethyl alcohol level 62 mg/dL on admission. I do not suspect delirium tremens at this time as patient appears to have no cognitive deficit and timing unlikely. Suspect mild withdrawal with shaking and agitation on admission. Start gabapentin withdrawal taper. AWSS with lorazepam as needed PO 1-3mg dosing (2) GERD without esophagitis: Continue pantoprazole 40 mg p.o. every morning (3) Chest pressure: Suspect related to GERD as above. No EKG changes. Not having this in the current time. No exertional. (4) Anxiety disorder: Continue Lexapro 20 mg p.o. every morning Trazodone 100 mg p.o. at bedtime (5) Benign essential hypertension: Continue lisinopril 5 mg p.o. every morning (6) DVT prophylaxis: Lovenox 40 mg SQ daily Admission and Anticipated Discharge Date Admission Date: December 31, 2020 History of Present Illness Chief Complaint: Alcohol withdrawal Primary Care Provider: DO Jessica Niñoalis Duran is a 65-year-old female who presents to the ER due to concerns for alcohol withdrawal. She is starting to feel shaky and agitated after having her last drink this morning. She reports drinking heavily since November 19. She comes in today as she feels it is time to stop. Usually she drinks 12 cans of beer a day with additional x4 days at a bar. Alcohol withdrawal symptoms including insomnia, tremors, anxiety, palpitations. She denies any confusion, headache or diaphoresis. She does report ambulatory dysfunction however this is only when she is drinking and not from withdrawals. She reports no prior history of alcohol withdrawal seizures. She is also been noticing some chest heaviness, no worse on exertion, worse after drinking moonshine, nonpleuritic. She has a significant hospitalization here in August for alcohol withdrawal. She did not follow-up for any inpatient or outpatient alcohol rehabilitation after this. She was referred to medicine for admission and ongoing management of delirium tremens. In the ER she is received 2 mg IV lorazepam prior to being seen by myself. Allergies Allergy/AdvReac Type Severity Reaction Status Date / Time No Known Allergies Allergy Verified 12/31/20 13:52 Home Medications Medication Instructions Recorded Confirmed Type albuterol sulfate 90 mcg/actuation 2 puff INH QID #8 gm 09/05/20 12/31/20 Rx aerosol inhaler lorazepam 0.5 mg tablet 0.5 mg PO DAILY PRN #10 tab 09/05/20 12/31/20 Rx escitalopram oxalate [Lexapro] 20 mg PO QAM 12/31/20 12/31/20 History fexofenadine 180 mg PO QAM 12/31/20 12/31/20 History fluticasone propionate 2 spray INTNAS QA 12/31/20 12/31/20 History lisinopril 5 mg PO QAM 12/31/20 12/31/20 History pantoprazole 40 mg PO QAM 12/31/20 12/31/20 History trazodone 100 mg PO HS 12/31/20 12/31/20 History Past Med/Surg History Medical History Alcohol withdrawal Allergic rhinitis Anemia Anxiety disorder Benign essential hypertension Depression Diverticulosis Elevated platelet count Elevated vitamin B12 level GERD without esophagitis Melanoma in situ Sinusitis, chronic Sleep disturbance Tubular adenoma of colon Vitamin D deficiency Surgical History H/O: hysterectomy History of cholecystectomy History of sinus surgery History of tonsillectomy Family History Grandmother (Paternal) Colon cancer Father Cardiac disorder Sister Lung cancer Grandfather Lung cancer Grandmother (Maternal) Breast cancer Mother Ovarian cancer Denies family history of Prostate cancer Social History Smoking Status: Never smoker Second Hand Exposure: No; Do You Dip or Chew Tobacco: No; Tobacco Cessation Education Requested by Patient: No Hx Alcohol Use: Yes Alcohol type: wine Alcohol type Comment: 12 beers Hx Substance Use: No Preferred Language: Japanese Communication Ability: Effective Visual Impairment: No Limitations Hearing Ability: Normal [employer] Required: No Beliefs That Will Affect Care: None marital status: Current Living Situation: Spouse current occupational status: other 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 Feels Safe at Home: Yes Safety Concerns: Feels Safe At This Time Childhood Exposure to Second-Hand Smoke: Yes caffeine: Yes (coffee) during the past year weight has: remained stable Dental Care, Regularly: Yes Physical Activity Frequency: Daily Seatbelt Use: always Sunscreen Use: Yes Assistive Devices: None Review of Systems Review of Systems: All systems reviewed & are unremarkable except as noted in HPI & below Physical Exam Constitutional: well developed and well nourished; no acute distress Eyes: PERRL, conjunctivae normal, anicteric sclerae no nystagmus ENMT: external ear and nose normal, oropharynx normal Respiratory: normal respiratory effort, lungs clear to auscultation Cardiovascular: Rate/Rhythm: regular rhythm and + tachycardic Heart Sounds: no murmur Extremities: normal capillary refill; no calf tenderness and no pedal edema Gastrointestinal (Abdomen): normal bowel sounds, soft, nontender, no hepatosplenomegaly Musculoskeletal: no cyanosis or clubbing, extremities motor strength 5/5 Skin: no rashes, warm and dry Neurologic: moves all extremities and awake; not confused Psychiatric: A+Ox3, euthymic affect Genitourinary: no CVA tenderness Results & Data Results & Data ([facility]) Vital Signs (Past 12 Hours) Vital Signs Temp Pulse Pulse Resp BP BP Pulse Ox 12/31/20 13:25 90 18 153/80 H 94 12/31/20 12:30 92 H 24 170/84 H 92 12/31/20 12:04 103 H 18 96 12/31/20 12:00 101 H 20 175/102 H 96 12/31/20 11:38 105 H 21 173/98 H 96 12/31/20 11:37 103 H 20 173/98 H 96 12/31/20 11:28 36.8 C 115 H 14 133/86 97 Diagnostic Findings XR chest 1V portable IMPRESSION: No acute cardiopulmonary findings. CT OF THE HEAD WITHOUT CONTRAST IMPRESSION: No acute intracranial findings. CT OF THE CERVICAL SPINE WITHOUT CONTRAST IMPRESSION: No acute cervical spine fracture or subluxation. Medications Administered ER medications given: NSS 1 hour bolus Ondansetron 4 mg IV Lorazepam 1 mg IV x2 ECG Indication: tachycardia Rate (beats per minute): 103 Rhythm: sinus tachycardia Findings: no acute ischemic change Comparison ECG Date: from (August 24, 2020) Change: no significant change Code Status & VTE Plan Code Status Full VTE Prophylaxis Plan VTE Prophylaxis will be ordered: Yes PG Care Time/CCT Total # of Minutes Spent Total Time Spent with Patient: Total time spent is greater than 50% in coordination of care (as documented) at patient's floor/unit and/or counseling patient: Coding Level of Care Code 72341 Initial Inpt Care Lvl 2 Diagnoses Alcohol withdrawal F10.230 Complication of substance-induced condition: uncomplicated GERD without esophagitis K21.9 Chest pressure R07.89 Anxiety disorder F41.1 Anxiety disorder type: generalized anxiety disorder Benign essential hypertension I10 DVT prophylaxis Z29.9 (1) Alcohol withdrawal Complication of substance-induced condition: uncomplicated Qualified Code(s): F10.230 - Alcohol dependence with withdrawal, uncomplicated (2) Anxiety disorder Anxiety disorder type: generalized anxiety disorder Qualified Code(s): F41.1 - Generalized anxiety disorder
[2020-12-31] MEDS ORDERED: PANTOprazole 40 MG TAB PO STA (14:34)
[2020-12-31] MEDS ORDERED: GABAPENTIN 600 MG TAB PO ONE (15:26)
[2020-12-31] MEDS ORDERED: GABAPENTIN 1200MG ALCOHOL WITHDRAWAL LOAD PO STA (15:26)
[2020-12-31] MEDS ORDERED: GABAPENTIN 600 MG TAB PO STA (15:34)
[2020-12-31] MEDS: THIAMINE HCL 100 MG TAB PO SCH (16:22)
--- NOTE | 2020-12-31 18:54 | Electrocardiogram Report ---
Test Reason : Blood Pressure : / mmHG Vent. Rate : 103 BPM Atrial Rate : 103 BPM P-R Int : 148 ms QRS Dur : 080 ms QT Int : 348 ms P-R-T Axes : 074 035 051 degrees QTc Int : 455 ms Sinus tachycardia Otherwise normal ECG When compared with ECG of 24-AUG-2020 17:51, No significant change was found Confirmed by Sam Thompson ([id number]) on 12/31/2020 6:53:53 PM Referred By: REFERRED SELF Confirmed By:Esdras Thompson
[2020-12-31] MEDS: GABAPENTIN 600 MG TAB PO SCH (21:24)
[2020-12-31] MEDS: ENOXAPARIN INJ 40 MG/0.4 ML SYR SQ SCH (21:25)
[2020-12-31] MEDS: traZODone HCL 100 MG TAB PO SCH (22:28)
[2020-12-31] MEDS: NITROFURANTOIN MONOHYDRATE 100 MG CAP PO SCH (22:33)
[2021-01-01] MEDS: GABAPENTIN 600 MG TAB PO SCH ×3 (03:23→20:41)
[2021-01-01 04:38] LABS: Basophils # (auto) 0.05 K/uL (0-0.2); Basophils % (auto) 0.7 %; Eosinophils # (auto) 0.04 K/uL (0-0.5); Eosinophils % (auto) 0.6 %; Hematocrit (blood only) 35.6 % (37-47); Hemoglobin 11.6 g/dL (12.0-16.0); Immature Granulocytes # (auto) 0.01 K/uL (0.00-0.02); Immature Granulocytes % (auto) 0.1 %; Lymphocytes % (auto) 24.5 %; Mean Corpuscular Hemoglobin 29.6 pg (25-34); Mean Corpuscular Hgb Conc 32.6 g/dL (32-36); Mean Corpuscular Volume 90.8 fL (80-100); Mean Platelet Volume 8.3 fL (7.4-10.4); Monocytes # (auto) 0.91 K/uL (0.11-0.59); Monocytes % (auto) 13.1 %; Neutrophils # (auto) 4.24 K/uL (1.4-6.5); Platelet Count 365 K/uL (130-400); RDW Coefficient of Variation 14.2 % (11.5-14.5); RDW Standard Deviation 46.6 fL (36.4-46.3); Red Blood Count 3.92 M/uL (4.2-5.4); White Blood Count 6.95 K/uL (4.8-10.8)
[2021-01-01 04:57] LABS: Albumin Level 3.3 gm/dl (3.4-5.0); BUN Creatinine Ratio 12.7 (10-20); Calcium 8.1 mg/dl (8.5-10.1); Creatinine Clr Calc Pharmacy 66.8 ml/min; Est GFR (African American) 78.3 ml/min; Est GFR (Non-African American) 67.6 ml/min; Potassium 4.1 mmol/L (3.5-5.1)
[2021-01-01 05:00] LABS: Albumin Globulin Ratio 1.2 (0.9-2); Bilirubin,Total 0.9 mg/dl (0.2-1); Globulin 2.8 gm/dl (2.5-4.0); Total Protein 6.1 gm/dl (6.4-8.2)
[2021-01-01] MEDS: NITROFURANTOIN MONOHYDRATE 100 MG CAP PO SCH ×2 (08:00→20:40)
[2021-01-01] MEDS: LORazepam 1 MG TAB PO PRN ×4 (08:00→20:40)
[2021-01-01] MEDS: ESCITALOPRAM OXALATE 20 MG TAB PO SCH (08:01)
[2021-01-01] MEDS: FEXOFENADINE HCL 180 MG TAB PO SCH (08:01)
[2021-01-01] MEDS: THIAMINE HCL 100 MG TAB PO SCH (08:01)
[2021-01-01] MEDS: PANTOprazole 40 MG TAB PO SCH (08:01)
[2021-01-01] MEDS: lisinopril 5 MG TAB PO SCH (08:02)
[2021-01-01] MEDS: FLUTICASONE PROPIONATE NA SPR 16 GM BTL NAE SCH (08:02)
[2021-01-01] MEDS: ACETAMINOPHEN 325 MG TAB PO PRN (08:54)
[2021-01-01] MEDS: ONDANSETRON INJ 2 MG/ML 2 ML VIAL IV PRN (08:54)
--- NOTE | 2021-01-01 10:22 | Hospitalist Progress Note ---
Date of Service January 01, 2021 Assessment & Plan (1) Alcohol withdrawal: Ethyl alcohol level 62 mg/dL on admission. I do not suspect delirium tremens at this time as patient appears to have no cognitive deficit and timing unlikely. Suspect mild withdrawal with shaking and agitation on admission. Start gabapentin withdrawal taper. AWSS with lorazepam as needed PO 1-3mg dosing She continues to go through withdrawal, She does not appear to be in Delirium tremens. (2) GERD without esophagitis: Continue pantoprazole 40 mg p.o. every morning (3) Chest pressure: Suspect related to GERD as above. No EKG changes. Not having this in the current time. No exertional. (4) Anxiety disorder: Continue Lexapro 20 mg p.o. every morning Trazodone 100 mg p.o. at bedtime (5) Benign essential hypertension: Continue lisinopril 5 mg p.o. every morning (6) DVT prophylaxis: Lovenox 40 mg SQ daily Admission and Anticipated Discharge Date Admission Date: December 31, 2020 Subjective Patient reports having more generalized pain, discomfort. She has a headache and pain in her hands and arms. Review of Systems Review of Systems: All systems reviewed & are unremarkable except as noted in HPI & below Physical Exam Physical Exam: Constitutional: well developed and well nourished; no acute distress Eyes: PERRL, conjunctivae normal, anicteric sclerae no nystagmus ENMT: external ear and nose normal, oropharynx normal Respiratory: normal respiratory effort, lungs clear to auscultation Cardiovascular: Rate/Rhythm: regular rhythm and + tachycardic Heart Sounds: no murmur Extremities: normal capillary refill; no calf tenderness and no pedal edema Gastrointestinal (Abdomen): normal bowel sounds, soft, nontender, no hepatosplenomegaly Musculoskeletal: no cyanosis or clubbing, extremities motor strength 5/5 Skin: no rashes, warm and dry Neurologic: moves all extremities and awake; not confused Psychiatric: A+Ox3, euthymic affect Genitourinary: no CVA tenderness Results & Data Results & Data ([facility]) Vital Signs (Past 12 Hours) Vital Signs Temp Pulse Pulse Resp BP BP Pulse Ox 01/01/21 08:45 92 H 01/01/21 06:00 93 H 14 98 01/01/21 05:32 101 H 20 150/80 H 95 01/01/21 05:00 83 17 99 01/01/21 04:32 82 19 141/78 H 100 01/01/21 04:00 81 18 99 01/01/21 03:32 82 18 151/71 H 95 01/01/21 03:18 36.8 C 01/01/21 03:08 80 01/01/21 03:00 83 24 97 01/01/21 02:32 82 20 128/84 94 01/01/21 02:31 79 17 01/01/21 00:00 94 H 12/31/20 23:37 36.4 C L 92 H 16 123/75 96 12/31/20 22:37 36.4 C L 100 H 18 149/80 H 95 PG Care Time/CCT Total # of Minutes Spent Total Time Spent with Patient: Total time spent is greater than 50% in coordination of care (as documented) at patient's floor/unit and/or counseling patient: Coding Level of Care Code 87474 Subseq Hosp Care Lvl 3 Diagnoses Alcohol withdrawal F10.230 Complication of substance-induced condition: uncomplicated GERD without esophagitis K21.9 Chest pressure R07.89 Anxiety disorder F41.1 Anxiety disorder type: generalized anxiety disorder Benign essential hypertension I10 DVT prophylaxis Z29.9 Time Spent (min) 35 (1) Alcohol withdrawal Complication of substance-induced condition: uncomplicated Qualified Code(s): F10.230 - Alcohol dependence with withdrawal, uncomplicated (2) Anxiety disorder Anxiety disorder type: generalized anxiety disorder Qualified Code(s): F41.1 - Generalized anxiety disorder
[2021-01-01] MEDS ORDERED: TRIAMCINOLONE ACET 40 MG/ML VIAL IA ONE (13:36)
[2021-01-01] MEDS ORDERED: BUPIVACAINE/EPINEPHRINE 0.25% 1:200,000 30 ML VIAL INFIL ONE (13:36)
--- NOTE | 2021-01-01 13:50 | Orthopedic Consultation ---
Date of Service January 01, 2021 Assessment & Plan (1) Right knee pain: We will get x-rays of the right knee first. I will also order up a cortisone injection for the right knee. If the x-rays look reasonable, and the patient consents to it, we will likely give her a right knee intra-articular injection tomorrow. History of Present Illness Reason for Consultation: Right knee pain. Requesting Physician: . Attending Physician: Denzel Tamez Jessica Moya is a pleasant 65-year-old female who is been having several weeks of right knee pain. She says she fell on her right flexed knee. She said the impact went directly on her patella. She has been having right knee pain since. She is able to ambulate but she has been having a lot of pain in her knee. At night the pain radiates from her knee down towards her ankle. She denies any previous knee pain or knee surgeries. She has not had any treatment to date.. Allergies Allergy/AdvReac Type Severity Reaction Status Date / Time No Known Allergies Allergy Verified 12/31/20 13:52 Home Medications Medication Instructions Recorded Confirmed Type albuterol sulfate 90 mcg/actuation 2 puff INH QID #8 gm 09/05/20 12/31/20 Rx aerosol inhaler lorazepam 0.5 mg tablet 0.5 mg PO DAILY PRN #10 tab 09/05/20 12/31/20 Rx escitalopram oxalate [Lexapro] 20 mg PO QAM 12/31/20 12/31/20 History fexofenadine 180 mg PO QA 12/31/20 12/31/20 History fluticasone propionate 2 spray INT[facility]S [facility] 12/31/20 12/31/20 History lisinopril 5 mg PO QAM 12/31/20 12/31/20 History pantoprazole 40 mg PO QAM 12/31/20 12/31/20 History trazodone 100 mg PO HS 12/31/20 12/31/20 History Past Med/Surg History Medical History Alcohol withdrawal Allergic rhinitis Anemia Anxiety disorder Benign essential hypertension Depression Diverticulosis Elevated platelet count Elevated vitamin B12 level GERD without esophagitis Melanoma in situ Sinusitis, chronic Sleep disturbance Tubular adenoma of colon Vitamin D deficiency Surgical History H/O: hysterectomy History of cholecystectomy History of sinus surgery History of tonsillectomy Family History Grandmother (Paternal) Colon cancer Father Cardiac disorder Sister Lung cancer Grandfather Lung cancer Grandmother (Maternal) Breast cancer Mother Ovarian cancer Denies family history of Prostate cancer Social History Smoking Status: Never smoker Second Hand Exposure: No; Do You Dip or Chew Tobacco: No; Tobacco Cessation Education Requested by Patient: No Hx Alcohol Use: Yes Alcohol type: wine Alcohol type Comment: 12 beers Hx Substance Use: No Preferred Language: [place] Communication Ability: Effective Visual Impairment: No Limitations Hearing Ability: Normal Reception Specialist Required: No Beliefs That Will Affect Care: None marital status: Current Living Situation: Spouse current occupational status: other 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 Physical Exam Physical examination the right knee, there is a trace effusion. She has motion of 0 to 110 degrees without too much pain. She has no varus valgus instability. She does have tenderness palpation along the medial joint line no pain of the patella. There are no abrasions lesions or lacerations of the skin.. Constitutional WD/WN, vitals as above Eyes PERRL, conjunctivae normal, anicteric sclerae ENMT external ear and nose normal, oropharynx normal Neck trachea midline, no thyromegaly Respiratory normal respiratory effort Cardiovascular RRR, no murmur, no edema Gastrointestinal (Abdomen) normal bowel sounds, soft, nontender, no hepatosplenomegaly Psychiatric A+Ox3, euthymic affect Results & Data Results & Data Laboratory Results . Diagnostic Findings . PG Care Time/CCT Total # of Minutes Spent Total Time Spent with Patient: Total time spent is greater than 50% in coordination of care (as documented) at patient's floor/unit and/or counseling patient: Coding Level of Care Code 77541 Inpt Consult Level 3 Diagnoses Right knee pain M25.561
--- NOTE | 2021-01-01 14:22 | XRay Report ---
XR knee RT 1 or 2V routine CLINICAL HISTORY: Right knee pain. COMPARISON: None FINDINGS: Alignment of the right knee is anatomic. There is no acute fracture. A small joint effusio n is present. Note is made of moderate to severe right knee osteoarthritis, most pronounced within th e medial and patellofemoral compartments. IMPRESSION: 1. No acute fracture. 2. Moderate to severe right knee osteoarthritis, most pronounced within the medial and patellofemoral compartments. 3. Small right knee joint effusion. ACT 112: Negative or not required by law. Electronically signed by: Mikey Trujillo M.D. 01/01/2021 2:21 PM
[2021-01-01] MEDS: traZODone HCL 100 MG TAB PO SCH (20:40)
[2021-01-01] MEDS: ENOXAPARIN INJ 40 MG/0.4 ML SYR SQ SCH (20:41)
[2021-01-02] MEDS: GABAPENTIN 600 MG TAB PO SCH ×2 (04:04→17:14)
--- NOTE | 2021-01-02 06:49 | Orthopedic Progress Note ---
Date of Service January 02, 2021 Assessment & Plan (1) Osteoarthritis of right knee: I gave her a right knee intra-articular injection at bedside today. This injection was this increased risk due to her anticoagulation medications. We discussed risk and benefits of the injection and elected to proceed. The injection can take a day or 2 to kick in and and a full week to take full effect. This knee will most likely be managed with cortisone injections and a possible knee replacement surgery in the future if she becomes more medically stable. She can follow-up in our office in 3 months for another right knee injection if necessary. The patient's right knee was prepped with alcohol swabs. The right knee was then injected with 40 mg of Kenalog and 3 cc of Marcaine. She tolerated the procedure well. A Band-Aid was placed. Subjective Jessica oMya was seen and examined at bedside this morning. She is still having pain in her right knee. She had her x-rays yesterday. She has no new complaints.. Review of Systems All systems reviewed & are unremarkable except as noted in HPI & below. Physical Exam On physical examination of her right knee, she has range of motion from 5 to 115 degrees. She has no instability. She has pain over the distal medial lateral femoral condyles. She has a trace effusion.. Results & Data Results & Data Laboratory Results . Diagnostic Findings X-rays of the right knee were reviewed personally by myself and show advanced osteoarthritis. There is joint space narrowing, osteophyte formation, and [id number] articulation.. PG Care Time/CCT Total # of Minutes Spent Total Time Spent with Patient: Total time spent is greater than 50% in coordin ation of care (as documented) at patient's floor/unit and/or counseling patient: Coding Level of Care Code 43893 Subseq Hosp Care Lvl 2 (24 - UNRELATED EVALUATION AND MANAGEMENT ) Diagnoses Osteoarthritis of right knee M17.11
[2021-01-02] MEDS: THIAMINE HCL 100 MG TAB PO SCH (07:50)
[2021-01-02] MEDS: lisinopril 5 MG TAB PO SCH (07:50)
[2021-01-02] MEDS: FEXOFENADINE HCL 180 MG TAB PO SCH (07:50)
[2021-01-02] MEDS: ESCITALOPRAM OXALATE 20 MG TAB PO SCH (07:50)
[2021-01-02] MEDS: FLUTICASONE PROPIONATE NA SPR 16 GM BTL NAE SCH (07:51)
[2021-01-02] MEDS: PANTOprazole 40 MG TAB PO SCH (07:51)
[2021-01-02] MEDS: NITROFURANTOIN MONOHYDRATE 100 MG CAP PO SCH ×2 (07:52→21:15)
[2021-01-02] MEDS: LORazepam 1 MG TAB PO PRN ×4 (07:57→21:15)
[2021-01-02] MEDS: ENOXAPARIN INJ 40 MG/0.4 ML SYR SQ SCH (21:15)
[2021-01-02] MEDS: traZODone HCL 100 MG TAB PO SCH (21:15)
--- NOTE | 2021-01-02 22:10 | Hospitalist Progress Note ---
Date of Service January 02, 2021 Assessment & Plan (1) Alcohol withdrawal: Ethyl alcohol level 62 mg/dL on admission. I do not suspect delirium tremens at this time as patient appears to have no cognitive deficit and timing unlikely. Suspect mild withdrawal with shaking and agitation on admission. Start gabapentin withdrawal taper. AWSS with lorazepam as needed PO 1-3mg dosing She continues to go through withdrawal, She does not appear to be in Delirium tremens. (2) GERD without esophagitis: Continue pantoprazole 40 mg p.o. every morning (3) Chest pressure: Suspect related to GERD as above. No EKG changes. Not having this in the current time. No exertional. (4) Anxiety disorder: Continue Lexapro 20 mg p.o. every morning Trazodone 100 mg p.o. at bedtime (5) Benign essential hypertension: Continue lisinopril 5 mg p.o. every morning (6) DVT prophylaxis: Lovenox 40 mg SQ daily Admission and Anticipated Discharge Date Admission Date: December 31, 2020 Subjective Patient reports no new complaints. She stilll does not feel at baseline. Review of Systems Review of Systems: All systems reviewed & are unremarkable except as noted in HPI & below Physical Exam Physical Exam: Constitutional: well developed and well nourished; no acute distress Eyes: PERRL, conjunctivae normal, anicteric sclerae no nystagmus ENMT: external ear and nose normal, oropharynx normal Respiratory: normal respiratory effort, lungs clear to auscultation Cardiovascular: Rate/Rhythm: regular rhythm and + tachycardic Heart Sounds: no murmur Extremities: normal capillary refill; no calf tenderness and no pedal edema Gastrointestinal (Abdomen): normal bowel sounds, soft, nontender, no hepatosplenomegaly Musculoskeletal: no cyanosis or clubbing, extremities motor strength 5/5 Skin: no rashes, warm and dry Neurologic: moves all extremities and awake; not confused Psychiatric: A+Ox3, euthymic affect Genitourinary: no CVA tenderness Results & Data Results & Data ([facility]) Vital Signs (Past 12 Hours) Vital Signs Temp Pulse Resp BP Pulse Ox 01/02/21 19:00 36.7 C 104 H 20 134/71 95 01/02/21 15:05 36.9 C 109 H 22 129/69 93 01/02/21 11:51 37.1 C 101 H 21 127/68 98 PG Care Time/CCT Total # of Minutes Spent Total Time Spent with Patient: Total time spent is greater than 50% in coordination of care (as documented) at patient's floor/unit and/or counseling patient: Coding Level of Care Code 86293 Subseq Hosp Care Lvl 2 Diagnoses Alcohol withdrawal F10.230 Complication of substance-induced condition: uncomplicated GERD without esophagitis K21.9 Chest pressure R07.89 Anxiety disorder F41.1 Anxiety disorder type: generalized anxiety disorder Benign essential hypertension I10 DVT prophylaxis Z29.9 Time Spent (min) 25 (1) Alcohol withdrawal Complication of substance-induced condition: uncomplicated Qualified Code(s): F10.230 - Alcohol dependence with withdrawal, uncomplicated (2) Anxiety disorder Anxiety disorder type: generalized anxiety disorder Qualified Code(s): F41.1 - Generalized anxiety disorder
[2021-01-03] MEDS: GABAPENTIN 600 MG TAB PO SCH (04:18)
[2021-01-03 06:52] LABS: Hematocrit (blood only) 37.5 % (37-47); Hemoglobin 12.3 g/dL (12.0-16.0); Mean Corpuscular Hemoglobin 29.4 pg (25-34); Mean Corpuscular Hgb Conc 32.8 g/dL (32-36); Mean Corpuscular Volume 89.5 fL (80-100); Mean Platelet Volume 8.5 fL (7.4-10.4); Platelet Count 432 K/uL (130-400); RDW Coefficient of Variation 13.2 % (11.5-14.5); RDW Standard Deviation 43.2 fL (36.4-46.3); Red Blood Count 4.19 M/uL (4.2-5.4); White Blood Count 12.45 K/uL (4.8-10.8)
[2021-01-03 07:09] LABS: Albumin Level 3.5 gm/dl (3.4-5.0); BUN Creatinine Ratio 23.7 (10-20); Calcium 8.7 mg/dl (8.5-10.1); Est GFR (Non-African American) 95.8 ml/min
[2021-01-03 07:12] LABS: Bilirubin,Total 0.5 mg/dl (0.2-1); Globulin 3.4 gm/dl (2.5-4.0); Total Protein 6.9 gm/dl (6.4-8.2)
[2021-01-03] MEDS: FEXOFENADINE HCL 180 MG TAB PO SCH (08:31)
[2021-01-03] MEDS: PANTOprazole 40 MG TAB PO SCH (08:31)
[2021-01-03] MEDS: NITROFURANTOIN MONOHYDRATE 100 MG CAP PO SCH ×2 (08:31→20:15)
[2021-01-03] MEDS: FLUTICASONE PROPIONATE NA SPR 16 GM BTL NAE SCH (08:31)
[2021-01-03] MEDS: ESCITALOPRAM OXALATE 20 MG TAB PO SCH (08:31)
[2021-01-03] MEDS: lisinopril 5 MG TAB PO SCH (08:31)
[2021-01-03] MEDS: THIAMINE HCL 100 MG TAB PO SCH (08:32)
[2021-01-03] MEDS: LORazepam 1 MG TAB PO PRN ×2 (08:39→12:21)
[2021-01-03] MEDS: ACETAMINOPHEN 325 MG TAB PO PRN ×2 (10:48→18:23)
[2021-01-03] MEDS ORDERED: LORazepam 1 MG TAB PO STA (15:55)
[2021-01-03] MEDS: ENOXAPARIN INJ 40 MG/0.4 ML SYR SQ SCH (20:15)
[2021-01-03] MEDS: traZODone HCL 100 MG TAB PO SCH (20:15)
--- NOTE | 2021-01-03 22:02 | Hospitalist Progress Note ---
Date of Service January 03, 2021 Assessment & Plan (1) Alcohol withdrawal: Ethyl alcohol level 62 mg/dL on admission. I do not suspect delirium tremens at this time as patient appears to have no cognitive deficit and timing unlikely. Suspect mild withdrawal with shaking and agitation on admission. Start gabapentin withdrawal taper. AWSS with lorazepam as needed PO 1-3mg dosing She continues to go through withdrawal, She does not appear to be in Delirium tremens. WILL GIVE AN ADDITIONAL DOSE OF ATIVAN 4 MG PO X1 (2) GERD without esophagitis: Continue pantoprazole 40 mg p.o. every morning (3) Chest pressure: Suspect related to GERD as above. No EKG changes. Not having this in the current time. No exertional. (4) Anxiety disorder: Continue Lexapro 20 mg p.o. every morning Trazodone 100 mg p.o. at bedtime (5) Benign essential hypertension: Continue lisinopril 5 mg p.o. every morning (6) DVT prophylaxis: Lovenox 40 mg SQ daily Admission and Anticipated Discharge Date Admission Date: December 31, 2020 Subjective Patient reports no new symptoms today. She has required multiple benzos as per nurse. Patient is requesting IV ativan as she feels it helps more to control her anxiety. Review of Systems Review of Systems: All systems reviewed & are unremarkable except as noted in HPI & below Physical Exam Physical Exam: Constitutional: well developed and well nourished; no acute d istress Eyes: PERRL, conjunctivae normal, anicteric sclerae no nystagmus ENMT: external ear and nose normal, oropharynx normal Respiratory: normal respiratory effort, lungs clear to auscultation Cardiovascular: Rate/Rhythm: regular rhythm and + tachycardic Heart Sounds: no murmur Extremities: normal capillary refill; no calf tenderness and no pedal edema Gastrointestinal (Abdomen): normal bowel sounds, soft, nontender, no hepatosplenomegaly Musculoskeletal: no cyanosis or clubbing, extremities motor strength 5/5 Skin: no rashes, warm and dry Neurologic: moves all extremities and awake; not confused Psychiatric: A+Ox3, euthymic affect Genitourinary: no CVA tenderness Results & Data Results & Data ([facility]) Vital Signs (Past 12 Hours) Vital Signs Temp Pulse Resp BP Pulse Ox 01/03/21 20:12 36.5 C 97 H 18 140/78 96 01/03/21 16:00 36.8 C 75 16 143/74 H 100 01/03/21 12:00 20 97 01/03/21 11:04 36.9 C 105 H 19 134/74 97 PG Care Time/CCT Total # of Minutes Spent Total Time Spent with Patient: Total time spent is greater than 50% in coordination of care (as documented) at patient's floor/unit and/or counseling patient: Coding Level of Care Code 99686 Subseq Hosp Care Lvl 3 Diagnoses Alcohol withdrawal F10.230 Complication of substance-induced condition: uncomplicated GERD without esophagitis K21.9 Chest pressure R07.89 Anxiety disorder F41.1 Anxiety disorder type: generalized anxiety disorder Benign essential hypertension I10 DVT prophylaxis Z29.9 Time Spent (min) 35 (1) Alcohol withdrawal Complication of substance-induced condition: uncomplicated Qualified Code(s): F10.230 - Alcohol dependence with withdrawal, uncomplicated (2) Anxiety disorder Anxiety disorder type: generalized anxiety disorder Qualified Code(s): F41.1 - Generalized anxiety disorder
[2021-01-04] MEDS ORDERED: GABAPENTIN 600 MG TAB PO SCH (04:00)
[2021-01-04] MEDS: ONDANSETRON INJ 2 MG/ML 2 ML VIAL IV PRN ×2 (05:12→12:09)
[2021-01-04 05:58] LABS: Hematocrit (blood only) 36.4 % (37-47); Hemoglobin 11.9 g/dL (12.0-16.0); Mean Corpuscular Hemoglobin 30.4 pg (25-34); Mean Corpuscular Hgb Conc 32.7 g/dL (32-36); Mean Corpuscular Volume 93.1 fL (80-100); Mean Platelet Volume 8.3 fL (7.4-10.4); Platelet Count 390 K/uL (130-400); RDW Coefficient of Variation 13.6 % (11.5-14.5); RDW Standard Deviation 46.1 fL (36.4-46.3); Red Blood Count 3.91 M/uL (4.2-5.4); White Blood Count 9.42 K/uL (4.8-10.8)
[2021-01-04 06:32] LABS: BUN Creatinine Ratio 28.8 (10-20); Calcium 8.4 mg/dl (8.5-10.1); Creatinine Clr Calc Pharmacy 122.9 ml/min; Est GFR (African American) 119.3 ml/min
[2021-01-04] MEDS: FEXOFENADINE HCL 180 MG TAB PO SCH (09:07)
[2021-01-04] MEDS: FLUTICASONE PROPIONATE NA SPR 16 GM BTL NAE SCH (09:07)
[2021-01-04] MEDS: NITROFURANTOIN MONOHYDRATE 100 MG CAP PO SCH ×2 (09:07→20:09)
[2021-01-04] MEDS: THIAMINE HCL 100 MG TAB PO SCH (09:07)
[2021-01-04] MEDS: ESCITALOPRAM OXALATE 20 MG TAB PO SCH (09:07)
[2021-01-04] MEDS: lisinopril 5 MG TAB PO SCH (09:07)
[2021-01-04] MEDS: PANTOprazole 40 MG TAB PO SCH (09:07)
[2021-01-04] MEDS: ACETAMINOPHEN 325 MG TAB PO PRN (10:56)
[2021-01-04] MEDS: LORazepam 1 MG TAB PO PRN ×2 (13:22→15:57)
--- NOTE | 2021-01-04 16:44 | Orthopedic Progress Note ---
Date of Service January 04, 2021 Assessment & Plan (1) Osteoarthritis of right knee: She seems to be much improved after the intra-articular injection. I told her that we can do another one 3 months from now she would like. I will happy to see her back to my office in 3 months for another injection. At this point I will sign off. If you need anything else please feel free to contact me at [phone]. Subjective Jessica Moya was seen and examined at bedside. Overall she is doing much better with regards to her right knee. She is now having much right knee pain. She says she is about 80% improved.. Review of Systems All systems reviewed & are unremarkable except as noted in HPI & below. Physical Exam On physical examination of the right knee, she has range of motion with 5 to 120 degrees. She has no effusion. She has much less pain with range of motion today.. Results & Data Results & Data Laboratory Results . Diagnostic Findings . PG Care Time/CCT Total # of Minutes Spent Total Time Spent with Patient: Total time spent is greater than 50% in coordination of care (as documented) at patient's floor/unit and/or counseling patient: Coding Level of Care Code 20795 Subseq Hosp Care Lvl 1 Diagnoses Osteoarthritis of right knee M17.11
[2021-01-04] MEDS: LORazepam 0.5 MG TAB PO SCH (20:08)
[2021-01-04] MEDS: ENOXAPARIN INJ 40 MG/0.4 ML SYR SQ SCH (20:08)
[2021-01-04] MEDS: traZODone HCL 100 MG TAB PO SCH (20:09)
--- NOTE | 2021-01-04 21:11 | Hospitalist Progress Note ---
Date of Service January 04, 2021 Assessment & Plan (1) Alcohol withdrawal: Ethyl alcohol level 62 mg/dL on admission. I do not suspect delirium tremens at this time as patient appears to have no cognitive deficit and timing unlikely. Suspect mild withdrawal with shaking and agitation on admission. Start gabapentin withdrawal taper. AWSS with lorazepam as needed PO 1-3mg dosing She continues to go through withdrawal, She does not appear to be in Delirium tremens. will give ativan at bedtime 0.5mg (2) GERD without esophagitis: Continue pantoprazole 40 mg p.o. every morning (3) Chest pressure: Suspect related to GERD as above. No EKG changes. Not having this in the current time. No exertional. (4) Anxiety disorder: Continue Lexapro 20 mg p.o. every morning Trazodone 100 mg p.o. at bedtime (5) Benign essential hypertension: Continue lisinopril 5 mg p.o. every morning (6) DVT prophylaxis: Lovenox 40 mg SQ daily Admission and Anticipated Discharge Date Admission Date: December 31, 2020 Subjective 65 yo female reports feeling well. She has no new complaints at this time. Her only concern is that she would like medication to help her sleep at night. Review of Systems Review of Systems: All systems reviewed & are unremarkable except as noted in HPI & below Physical Exam Physical Exam: Constitutional: well developed and well nourished; no acute distress Eyes: PERRL, conjunctivae normal, anicteric sclerae no nystagmus ENMT: external ear and nose normal, oropharynx normal Respiratory: normal respiratory effort, lungs clear to auscultation Cardiovascular: Rate/Rhythm: regular rhythm and + tachycardic Heart Sounds: no murmur Extremities: normal capillary refill; no calf tenderness and no pedal edema Gastrointestinal (Abdomen): normal bowel sounds, soft, nontender, no hepatosplenomegaly Musculoskeletal: no cyanosis or clubbing, extremities motor strength 5/5 Skin: no rashes, warm and dry Neurologic: moves all extremities and awake; not confused Psychiatric: A+Ox3, euthymic affect Genitourinary: no CVA tenderness Results & Data Results & Data ([facility]) Vital Signs (Past 12 Hours) Vital Signs Temp Pulse Resp BP Pulse Ox 01/04/21 19:31 37.4 C 104 H 18 131/82 95 01/04/21 15:11 37.2 C 96 H 18 149/86 H 95 01/04/21 11:36 37.0 C 100 H 16 124/69 95 PG Care Time/CCT Total # of Minutes Spent Total Time Spent with Patient: Total time spent is greater than 50% in coordination of care (as documented) at patient's floor/unit and/or counseling patient: Coding Level of Care Code 77128 Subseq Hosp Care Lvl 2 Diagnoses Alcohol withdrawal F10.230 Complication of substance-induced condition: uncomplicated GERD without esophagitis K21.9 Chest pressure R07.89 Anxiety disorder F41.1 Anxiety disorder type: generalized anxiety disorder Benign essential hypertension I10 DVT prophylaxis Z29.9 Time Spent (min) 25 (1) Alcohol withdrawal Complication of substance-induced condition: uncomplicated Qualified Code(s): F10.230 - Alcohol dependence with withdrawal, uncomplicated (2) Anxiety disorder Anxiety disorder type: generalized anxiety disorder Qualified Code(s): F41.1 - Generalized anxiety disorder
[2021-01-05] MEDS: ACETAMINOPHEN 325 MG TAB PO PRN ×2 (05:00→12:35)
[2021-01-05] MEDS: LORazepam 1 MG TAB PO PRN ×4 (07:20→20:07)
[2021-01-05] MEDS: ESCITALOPRAM OXALATE 20 MG TAB PO SCH (07:20)
[2021-01-05] MEDS: FEXOFENADINE HCL 180 MG TAB PO SCH (07:20)
[2021-01-05] MEDS: PANTOprazole 40 MG TAB PO SCH (07:21)
[2021-01-05] MEDS: THIAMINE HCL 100 MG TAB PO SCH (07:21)
[2021-01-05] MEDS: NITROFURANTOIN MONOHYDRATE 100 MG CAP PO SCH ×2 (07:21→20:08)
[2021-01-05] MEDS: FLUTICASONE PROPIONATE NA SPR 16 GM BTL NAE SCH (07:21)
[2021-01-05] MEDS: lisinopril 5 MG TAB PO SCH (07:21)
[2021-01-05] MEDS: ONDANSETRON INJ 2 MG/ML 2 ML VIAL IV PRN (12:37)
[2021-01-05] MEDS ORDERED: GABAPENTIN 1200MG ALCOHOL WITHDRAWAL LOAD PO STA (16:48)
[2021-01-05] MEDS ORDERED: GABAPENTIN 600 MG TAB PO ONE (17:00)
[2021-01-05] MEDS: LORazepam 0.5 MG TAB PO SCH (20:07)
[2021-01-05] MEDS: traZODone HCL 100 MG TAB PO SCH (20:08)
[2021-01-05] MEDS: ENOXAPARIN INJ 40 MG/0.4 ML SYR SQ SCH (20:08)
[2021-01-05] MEDS: GABAPENTIN 600 MG TAB PO SCH (22:45)
--- NOTE | 2021-01-05 23:48 | Hospitalist Progress Note ---
Date of Service January 05, 2021 Assessment & Plan (1) Alcohol withdrawal: Ethyl alcohol level 62 mg/dL on admission. Today is day 5 of hospital stay, she appreas to be requiring more ativan today. She received gabapentin taper on first days of hospital stay. Will order for seccond time as patient appears to be going through withdrawal. Unsure if patient will be able to go to rehab as [facility] was going to provide for cost. However [facility] called patient today for an interview and patient refused to participate. She is hoping to try again on Friday. AWSS with lorazepam as needed PO 1-3mg dosing She does not appear to be in Delirium tremens. (2) GERD without esophagitis: Continue pantoprazole 40 mg p.o. every morning (3) Chest pressure: Suspect related to GERD as above. No EKG changes. Not having this in the current time. No exertional. (4) Anxiety disorder: Continue Lexapro 20 mg p.o. every morning Trazodone 100 mg p.o. at bedtime (5) Benign essential hypertension: Continue lisinopril 5 mg p.o. every morning (6) DVT prophylaxis: Lovenox 40 mg SQ daily Admission and Anticipated Discharge Date Admission Date: December 31, 2020 Subjective Patient reports she is interested in rehab. Patient reports feeling anxious. Had discussion with , patient refused to talk to [facility] today for alcohol rehab placement. Review of Systems Review of Systems: All systems reviewed & are unremarkable except as noted in HPI & below Physical Exam Physical Exam: Constitutional: well developed and well nourished; no acute distress Eyes: PERRL, conjunctivae normal, anicteric sclerae no nystagmus ENMT: external ear and nose normal, oropharynx normal Respiratory: normal respiratory effort, lungs clear to auscultation Cardiovascular: Rate/Rhythm: regular rhythm and + tachycardic Heart Sounds: no murmur Extremities: normal capillary refill; no calf tenderness and no pedal edema Gastrointestinal (Abdomen): normal bowel sounds, soft, nontender, no hepatosplenomegaly Musculoskeletal: no cyanosis or clubbing, extremities motor strength 5/5 Skin: no rashes, warm and dry Neurologic: moves all extremities and awake; not confused Psychiatric: A+Ox3, euthymic affect Genitourinary: no CVA tenderness Results & Data Results & Data ([facility]) Vital Signs (Past 12 Hours) Vital Signs Temp Pulse Resp BP Pulse Ox 01/05/21 23:29 36.5 C 104 H 20 118/66 93 01/05/21 19:58 36.8 C 99 H 20 154/72 H 94 01/05/21 15:27 36.6 C 106 H 19 151/94 H 95 01/05/21 12:01 36.6 C 93 H 18 156/85 H 97 PG Care Time/CCT Total # of Minutes Spent Total Time Spent with Patient: Total time spent is greater than 50% in coordination of care (as documented) at patient's floor/unit and/or counseling patient: Coding Level of Care Code 07753 Subseq Hosp Care Lvl 3 Diagnoses Alcohol withdrawal F10.230 Complication of substance-induced condition: uncomplicated GERD without esophagitis K21.9 Chest pressure R07.89 Anxiety disorder F41.1 Anxiety disorder type: generalized anxiety disorder Benign essential hypertension I10 DVT prophylaxis Z29.9 Time Spent (min) 35 (1) Alcohol withdrawal Complication of substance-induced condition: uncomplicated Qualified Code(s): F10.230 - Alcohol dependence with withdrawal, uncomplicated (2) Anxiety disorder Anxiety disorder type: generalized anxiety disorder Qualified Code(s): F41.1 - Generalized anxiety disorder
[2021-01-06] MEDS ORDERED: GABAPENTIN 600 MG TAB PO SCH (01:00)
[2021-01-06] MEDS: GABAPENTIN 600 MG TAB PO SCH ×3 (05:35→22:32)
[2021-01-06] MEDS: ESCITALOPRAM OXALATE 20 MG TAB PO SCH (08:00)
[2021-01-06] MEDS: THIAMINE HCL 100 MG TAB PO SCH (08:00)
[2021-01-06] MEDS: lisinopril 5 MG TAB PO SCH (08:00)
[2021-01-06] MEDS: FEXOFENADINE HCL 180 MG TAB PO SCH (08:00)
[2021-01-06] MEDS: FLUTICASONE PROPIONATE NA SPR 16 GM BTL NAE SCH (08:00)
[2021-01-06] MEDS: PANTOprazole 40 MG TAB PO SCH (08:00)
[2021-01-06] MEDS: LORazepam 1 MG TAB PO PRN ×3 (08:02→18:16)
[2021-01-06] MEDS: ACETAMINOPHEN 325 MG TAB PO PRN ×3 (10:31→22:31)
--- NOTE | 2021-01-06 12:13 | Hospitalist Progress Note ---
Date of Service January 06, 2021 Assessment & Plan (1) Alcohol withdrawal: Today is day 6. After 7 days, would be in minority of those withdrawing. - Will taper her gabapentin today. - Continue thiamine - AWSS with lorazepam as needed PO 1-3mg dosing - She does not appear to be in delirium tremens. - Discussed with CM. She actually declined further assessment by the [facility] and wishes to return home. (2) GERD without esophagitis: - Continue pantoprazole 40 mg p.o. every morning (3) Chest pressure: Suspect related to GERD. No EKG changes. Not having this in the current time. Not exertional. - Monitor (4) Anxiety disorder: - Continue Lexapro 20 mg p.o. every morning & trazodone 100 mg p.o. at bedtime (5) Benign essential hypertension: BP is 135/75 today. - Continue lisinopril 5 mg p.o. every morning (6) DVT prophylaxis: Lovenox 40 mg SQ daily Admission and Anticipated Discharge Date Admission Date: December 31, 2020 Subjective Feels more symptoms today. She asks if I can "knock her out" so that she does not feel anything. I indicated that this was not an acceptable solution to her withdrawal symptoms and that she would need to continue good PO intake for nutrition and health. She was disappointed, but understood. She then also asked for several chocolate ice creams which I got for her. Reports no fevers/chills, chest pain, shortness of breath, abdominal pain, nausea, or vomiting. Physical Exam Constitutional: WD/WN, vitals as above Eyes: EOM intact bilaterally; no conjunctival abnormality ENMT: external ear and nose normal, oropharynx normal (No tongue fasciulations) Neck: trachea midline, no thyromegaly normal visual inspection Respiratory: normal respiratory effort, lungs clear to auscultation no respiratory distress Cardiovascular: RRR, no murmur, no edema Gastrointestinal (Abdomen): Inspection/Auscultation: abdomen normal to inspec tion; abdomen not distended Musculoskeletal: no cyanosis or clubbing, extremities motor strength 5/5 Skin: no rashes, warm and dry Neurologic: moves all extremities and awake Motor/Sensory: no tremor (No tremor with outstretched arms) Psychiatric: Orientation: alert, oriented to person and cooperative Results & Data Results & Data ([facility]) Vital Signs (Past 12 Hours) Vital Signs Temp Pulse Pulse Resp BP Pulse Ox 01/06/21 11:31 36.6 C 108 H 22 134/72 92 01/06/21 10:27 37.5 C 110 H 18 126/64 94 01/06/21 08:00 105 H 01/06/21 07:47 37.2 C 106 H 21 121/70 92 01/06/21 03:53 36.7 C 111 H 16 124/72 95 01/06/21 00:33 96 H PG Care Time/CCT Total # of Minutes Spent Total Time Spent with Patient: Total time spent is greater than 50% in coordina tion of care (as documented) at patient's floor/unit and/or counseling patient: Coding Level of Care Code 66106 Subseq Hosp Care Lvl 2 Diagnoses Alcohol withdrawal F10.230 Complication of substance-induced condition: uncomplicated GERD without esophagitis K21.9 Chest pressure R07.89 Anxiety disorder F41.1 Anxiety disorder type: generalized anxiety disorder Benign essential hypertension I10 DVT prophylaxis Z29.9 (1) Alcohol withdrawal Complication of substance-induced condition: uncomplicated Qualified Code(s): F10.230 - Alcohol dependence with withdrawal, uncomplicated (2) Anxiety disorder Anxiety disorder type: generalized anxiety disorder Qualified Code(s): F41.1 - Generalized anxiety disorder
[2021-01-06] MEDS: ONDANSETRON INJ 2 MG/ML 2 ML VIAL IV PRN ×2 (18:12→22:31)
[2021-01-06] MEDS: LORazepam 0.5 MG TAB PO SCH (22:31)
[2021-01-06] MEDS: ENOXAPARIN INJ 40 MG/0.4 ML SYR SQ SCH (22:31)
[2021-01-06] MEDS: traZODone HCL 100 MG TAB PO SCH (22:32)
[2021-01-07] MEDS: ACETAMINOPHEN 325 MG TAB PO PRN ×3 (03:21→23:48)
[2021-01-07] MEDS: ONDANSETRON INJ 2 MG/ML 2 ML VIAL IV PRN ×2 (04:40→11:43)
[2021-01-07] MEDS: GABAPENTIN 600 MG TAB PO SCH ×2 (04:40→16:16)
[2021-01-07] MEDS: LORazepam 1 MG TAB PO PRN (06:11)
[2021-01-07 06:15] LABS: Hematocrit (blood only) 37.3 % (37-47); Hemoglobin 12.3 g/dL (12.0-16.0); Mean Corpuscular Hemoglobin 29.9 pg (25-34); Mean Corpuscular Volume 90.5 fL (80-100); Mean Platelet Volume 8.3 fL (7.4-10.4); Platelet Count 356 K/uL (130-400); RDW Coefficient of Variation 13.5 % (11.5-14.5); RDW Standard Deviation 45.3 fL (36.4-46.3); Red Blood Count 4.12 M/uL (4.2-5.4); White Blood Count 8.52 K/uL (4.8-10.8)
[2021-01-07 06:42] LABS: BUN Creatinine Ratio 22.3 (10-20); Calcium 8.5 mg/dl (8.5-10.1); Creatinine Clr Calc Pharmacy 103.1 ml/min; Est GFR (African American) 112.3 ml/min; Est GFR (Non-African American) 96.9 ml/min; Magnesium 3.1 mg/dl (1.8-2.4); Potassium 4.5 mmol/L (3.5-5.1)
[2021-01-07] MEDS: FEXOFENADINE HCL 180 MG TAB PO SCH (08:23)
[2021-01-07] MEDS: ESCITALOPRAM OXALATE 20 MG TAB PO SCH (08:23)
[2021-01-07] MEDS: THIAMINE HCL 100 MG TAB PO SCH (08:23)
[2021-01-07] MEDS: lisinopril 5 MG TAB PO SCH (08:23)
[2021-01-07] MEDS: FLUTICASONE PROPIONATE NA SPR 16 GM BTL NAE SCH (08:23)
[2021-01-07] MEDS: PANTOprazole 40 MG TAB PO SCH (08:23)
[2021-01-07] MEDS: hydrOXYzine HCl 10 MG TAB PO PRN ×2 (12:28→20:50)
--- NOTE | 2021-01-07 13:36 | Hospitalist Progress Note ---
Date of Service January 07, 2021 Assessment & Plan (1) Alcohol withdrawal: Today is day 7. After 7 days, would be in minority of those withdrawing. - Will taper her gabapentin today. - Continue thiamine - Discontinued AWSS and Ativan today as her objective symptoms have resolved. The RN reports she answers all questions with positive responses and therefore, her RUBEN scores are still borderline. - She does not appear to be in delirium tremens. - She wishes to return home again today. (2) GERD without esophagitis: - Continue pantoprazole 40 mg p.o. every morning (3) Chest pressure: Suspect related to GERD. No EKG changes. Not having this in the current time. Not exertional. - Add Mylanta PRN - Monitor (4) Anxiety disorder: - Continue Lexapro 20 mg p.o. every morning & trazodone 100 mg p.o. at bedtime - Added hydroxyzine PRN for continued anxiety (5) Benign essential hypertension: BP is 135/75 today. - Continue lisinopril 5 mg p.o. every morning (6) DVT prophylaxis: Lovenox 40 mg SQ daily Admission and Anticipated Discharge Date Admission Date: December 31, 2020 Subjective Feels very tearful today. Feels strongly that she needs "something like Valium or Ativan" to help her reduce her anxiety. She feels the nurses have been talking about her outside of the room and is very upset about it. She also notes ongoing stomach upset. Reports no fevers/chills, chest pain, shortness of breath, or vomiting. Physical Exam Constitutional: WD/WN, vitals as above + acute distress Eyes: EOM intact bilaterally; no conjunctival abnormality ENMT: external ear and nose normal, oropharynx normal (No tongue fasciulations) Neck: trachea midline, no thyromegaly normal visual inspection Respiratory: normal respiratory effort, lungs clear to auscultation no respiratory distress Cardiovascular: Rate/Rhythm: regular rhythm and + tachycardic Heart Sounds: normal S1 and normal S2 Gastrointestinal (Abdomen): Inspection/Auscultation: abdomen normal to inspection; abdomen not distended Musculoskeletal: no cyanosis or clubbing, extremities motor strength 5/5 Skin: no rashes, warm and dry Neurologic: moves all extremities and awake Motor/Sensory: no tremor (No tremor with outstretched arms) Psychiatric: Orientation: alert, oriented to person and cooperative Results & Data Results & Data ([facility]) Vital Signs (Past 12 Hours) Vital Signs Temp Pulse Pulse Resp BP Pulse Ox 01/07/21 11:23 36.6 C 96 H 18 133/77 93 01/07/21 08:32 98 H 01/07/21 08:26 37.1 C 106 H 16 121/64 94 01/07/21 03:07 36.6 C 104 H 20 107/66 95 PG Care Time/CCT Total # of Minutes Spent Total Time Spent with Patient: Total time spent is greater than 50% in coordination of care (as documented) at patient's floor/unit and/or counseling patient: Coding Level of Care Code 41144 Subseq Hosp Care Lvl 2 Diagnoses Alcohol withdrawal F10.230 Complication of substance-induced condition: uncomplicated GERD without esophagitis K21.9 Chest pressure R07.89 Anxiety disorder F41.1 Anxiety disorder type: generalized anxiety disorder Benign essential hypertension I10 DVT prophylaxis Z29.9 (1) Alcohol withdrawal Complication of substance-induced condition: uncomplicated Qualified Code(s): F10.230 - Alcohol dependence with withdrawal, uncomplicated (2) Anxiety disorder Anxiety disorder type: generalized anxiety disorder Qualified Code(s): F41.1 - Generalized anxiety disorder
[2021-01-07] MEDS ORDERED: ALUMINUM/MAGNESIUM/SIMETH (MAALOX MAX) 30 ML UDC PO PRN (13:43)
[2021-01-07] MEDS: traZODone HCL 100 MG TAB PO SCH (20:50)
[2021-01-07] MEDS: ENOXAPARIN INJ 40 MG/0.4 ML SYR SQ SCH (20:50)
[2021-01-08] MEDS ORDERED: GABAPENTIN 600 MG TAB PO SCH (01:00)
[2021-01-08] MEDS: GABAPENTIN 600 MG TAB PO SCH (05:48)
[2021-01-08] MEDS: ACETAMINOPHEN 325 MG TAB PO PRN (06:54)
[2021-01-08] MEDS: PANTOprazole 40 MG TAB PO SCH (08:11)
[2021-01-08] MEDS: FLUTICASONE PROPIONATE NA SPR 16 GM BTL NAE SCH (08:11)
[2021-01-08] MEDS: THIAMINE HCL 100 MG TAB PO SCH (08:11)
[2021-01-08] MEDS: lisinopril 5 MG TAB PO SCH (08:12)
[2021-01-08] MEDS: ESCITALOPRAM OXALATE 20 MG TAB PO SCH (08:12)
[2021-01-08] MEDS: FEXOFENADINE HCL 180 MG TAB PO SCH (08:12)
[2021-01-08] MEDS: hydrOXYzine HCl 10 MG TAB PO PRN ×3 (08:15→19:50)
[2021-01-08] MEDS ORDERED: POLYETHYLENE (MIRALAX) 17 GM PACK PO STA (09:13)
[2021-01-08] MEDS ORDERED: ALBUTEROL HFA 8 GM INHALER INH PRN (09:13)
--- NOTE | 2021-01-08 11:39 | Fluoroscopy Report ---
FL barium swallow CLINICAL HISTORY: Trouble swallowing COMPARISON STUDY: None. FINDINGS: Total fluoroscopy time was 1.1 minutes. 19 fluoroscopic spot images and a cine loop submitt ed. The patient swallow barium without difficulty. The contours of the hypopharynx are within normal limits. There is mild esophageal dysmotility. Mild focal narrowing at the distal esophagus which demo nstrates transverse folds/scarring. This favors chronic reflux. There is gastroesophageal reflux demo nstrated during the examination. The barium tablet passed without difficulty. There is a small hiatus hernia. IMPRESSION: 1. Gastroesophageal reflux demonstrated during the examination. 2. Mild focal narrowing at the distal esophagus which demonstrates transverse folds/scarring. This fa vors chronic reflux. This can be confirmed with follow-up endoscopy. 3. Small hiatus hernia. ACT 112: Positive. There are findings on this exam that require communication between the performing entity and the patient following Patient Test Result Information Act ([place] Act 112) guidelines. Electronically signed by: Tim Gamez M.D. 01/08/2021 11:38 AM
--- NOTE | 2021-01-08 14:08 | Hospitalist Progress Note ---
Date of Service January 08, 2021 Assessment & Plan (1) GERD without esophagitis: Sensation of food getting stuck in the lower esophagus. Barium swallow shows lower esophageal narrowing. - Continue pantoprazole 40 mg p.o. every morning - GI consulted - Plan for EGD tomorrow on discussion with them. (2) Alcohol withdrawal: Today is day 7. After 7 days, would be in minority of those withdrawing. - Will taper her gabapentin today. - Continue thiamine - Discontinued AWSS and Ativan today as her objective symptoms have resolved. The RN reports she answers all questions with positive responses and therefore, her RUBEN scores are still borderline. - She does not appear to be in delirium tremens. - She wishes to return home again today. (3) Chest pressure: Suspect related to GERD. No EKG changes. Not having this in the current time. Not exertional. - Add Mylanta PRN - Monitor (4) Anxiety disorder: - Continue Lexapro 20 mg p.o. every morning & trazodone 100 mg p.o. at bedtime - Added hydroxyzine PRN for continued anxiety (5) Benign essential hypertension: BP is 135/75 today. - Continue lisinopril 5 mg p.o. every morning (6) DVT prophylaxis: Lovenox 40 mg SQ daily Admission and Anticipated Discharge Date Admission Date: December 31, 2020 Subjective Much better today; less anxiety. Feels she is nearly ready to go. Still noting some food/water "getting stuck" sensation in her lower esophagus. Reports no fevers/chills, chest pain, shortness of breath, abdominal pain, nausea, or vomiting. Physical Exam Constitutional: WD/WN, vitals as above Eyes: EOM intact bilaterally; no conjunctival abnormality ENMT: external ear and nose normal, oropharynx normal (No tongue fasciulations) Neck: trachea midline, no thyromegaly normal visual inspection Respiratory: normal respiratory effort, lungs clear to auscultation no respiratory distress Cardiovascular: Rate/Rhythm: regular rate and regular rhythm Heart Sounds: normal S1 and normal S2 Gastrointestinal (Abdomen): Inspection/Auscultation: abdomen normal to inspection; abdomen not distended Musculoskeletal: no cyanosis or clubbing, extremities motor strength 5/5 Skin: no rashes, warm and dry Neurologic: moves all extremities and awake Motor/Sensory: no tremor (No tremor with outstretched arms) Psychiatric: Orientation: alert, oriented to person and cooperative Results & Data Results & Data ([facility]) Vital Signs (Past 12 Hours) Vital Signs Temp Pulse Resp BP Pulse Ox 01/08/21 11:57 36.7 C 88 19 134/80 98 01/08/21 07:33 37.0 C 97 H 16 124/59 L 96 01/08/21 03:05 36.6 C 101 H 16 118/69 95 PG Care Time/CCT Total # of Minutes Spent Total Time Spent with Patient: Total time spent is greater than 50% in coordination of care (as documented) at patient's floor/unit and/or counseling patient: Coding Level of Care Code 22370 Subseq Hosp Care Lvl 3 Diagnoses GERD without esophagitis K21.9 Alcohol withdrawal F10.230 Complication of substance-induced condition: uncomplicated Chest pressure R07.89 Anxiety disorder F41.1 Anxiety disorder type: generalized anxiety disorder Benign essential hypertension I10 DVT prophylaxis Z29.9 (1) Alcohol withdrawal Complication of substance-induced condition: uncomplicated Qualified Code(s): F10.230 - Alcohol dependence with withdrawal, uncomplicated (2) Anxiety disorder Anxiety disorder type: generalized anxiety disorder Qualified Code(s): F41.1 - Generalized anxiety disorder
[2021-01-08] MEDS: ENOXAPARIN INJ 40 MG/0.4 ML SYR SQ SCH (19:50)
[2021-01-08] MEDS: traZODone HCL 100 MG TAB PO SCH (19:50)
[2021-01-08] MEDS: MELATONIN 3 MG TAB PO SCH (21:53)
[2021-01-09] MEDS ORDERED: GABAPENTIN 600 MG TAB PO SCH ×2 (04:49→05:00)
[2021-01-09 05:54] LABS: Hematocrit (blood only) 37.4 % (37-47); Hemoglobin 12.5 g/dL (12.0-16.0); Mean Corpuscular Hgb Conc 33.4 g/dL (32-36); Mean Corpuscular Volume 89.9 fL (80-100); Mean Platelet Volume 8.5 fL (7.4-10.4); Platelet Count 337 K/uL (130-400); RDW Coefficient of Variation 13.5 % (11.5-14.5); RDW Standard Deviation 44.8 fL (36.4-46.3); Red Blood Count 4.16 M/uL (4.2-5.4); White Blood Count 8.11 K/uL (4.8-10.8)
[2021-01-09 06:24] LABS: BUN Creatinine Ratio 23.3 (10-20); Calcium 8.4 mg/dl (8.5-10.1); Creatinine Clr Calc Pharmacy 93.6 ml/min; Est GFR (African American) 109.3 ml/min; Est GFR (Non-African American) 94.3 ml/min; Magnesium 2.7 mg/dl (1.8-2.4); Potassium 4.2 mmol/L (3.5-5.1)
[2021-01-09 06:27] LABS: Phosphorus 4.6 mg/dl (2.5-4.9)
[2021-01-09] MEDS: FLUTICASONE PROPIONATE NA SPR 16 GM BTL NAE SCH (07:45)
[2021-01-09] MEDS: FEXOFENADINE HCL 180 MG TAB PO SCH (07:45)
[2021-01-09] MEDS: PANTOprazole 40 MG TAB PO SCH (07:46)
[2021-01-09] MEDS: THIAMINE HCL 100 MG TAB PO SCH (07:46)
[2021-01-09] MEDS: ESCITALOPRAM OXALATE 20 MG TAB PO SCH (07:46)
[2021-01-09] MEDS: lisinopril 5 MG TAB PO SCH (07:46)
--- NOTE | 2021-01-09 09:39 | Gastrointestinal Consultation ---
Date of Consultation January 09, 2021 Assessment & Plan (1) Abnormal barium swallow: (2) GERD without esophagitis: (3) Chest pressure: DDX: esophagitis vs stricture vs mass vs other. 1. NPO for now. 2. EGD with Dr. Kaufman today for further evaluation. 3. Continue Pantoprazole 40 mg daily. 4. Further recommendations will be made pending results of testing. Thank you for allowing us to participate in the care of this pleasant patient. If you have any questions or concerns, please do not hesitate to contact us. Supervising Physician Co-Signing Physician Notes I personally evaluated the patient and agree with the findings as documented by LARRY Roldan Exam: abd: soft, nt, nd Proceed with EGD. risks/benefits and procedure discussed with patient, who agrees to proceed History of Present Illness Reason for Consultation: Narrowing of distal esophagus Requesting Physician: Dr. Paniagua Attending Physician: Jerry Paniagua MD History of Present Illness Patient is a 65 y.o. female with a history of GERD and alcohol abuse, admitted with concern for ETOH withdrawal symptoms. She had reported chest pain and underwent a barium swallow study which demonstrated distal esophageal thickening which favored esophagitis but upper endoscopy was recommended for further evaluation. Patient denies any dysphagia or odynophagia, no nausea or vomiting, mild epigastric pain, but no melena or hematochezia. Denies chest pain, palpitations, or shortness of breath at present. Allergies Allergy/AdvReac Type Severity Reaction Status Date / Time No Known Allergies Allergy Verified 12/31/20 13:52 Home Medications Medication Instructions Recorded Confirmed Type albuterol sulfate 90 mcg/actuation 2 puff INH QID #8 gm 09/05/20 12/31/20 Rx aerosol inhaler escitalopram oxalate [Lexapro] 20 mg PO QAM 12/31/20 12/31/20 History fexofenadine 180 mg PO QAM 12/31/20 12/31/20 History fluticasone propionate 2 spray INTNAS QA 12/31/20 12/31/20 History lisinopril 5 mg PO QAM 12/31/20 12/31/20 History pantoprazole 40 mg PO QAM 12/31/20 12/31/20 History trazodone 100 mg PO 05/16/21 05/16/21 History Patient History Medical History Alcohol withdrawal Allergic rhinitis Anemia Anxiety disorder Benign essential hypertension Depression Diverticulosis Elevated platelet count Elevated vitamin B12 level GERD without esophagitis Melanoma in situ Sinusitis, chronic Sleep disturbance Tubular adenoma of colon Vitamin D deficiency Surgical History H/O: hysterectomy History of cholecystectomy History of sinus surgery History of tonsillectomy Family History Grandmother (Paternal) Colon cancer Father Cardiac disorder Sister Lung cancer Grandfather Lung cancer Grandmother (Maternal) Breast cancer Mother Ovarian cancer Denies family history of Prostate cancer Social History Smoking Status: Never smoker Second Hand Exposure: No; Do You Dip or Chew Tobacco: No; Tobacco Cessation Education Requested by Patient: No Hx Alcohol Use: Yes Alcohol type: wine Alcohol type Comment: 12 beers Hx Substance Use: No Preferred Language: Portuguese Communication Ability: Effective Visual Impairment: No Limitations Hearing Ability: Normal Waterside Worker Required: No Beliefs That Will Affect Care: None marital status: Current Living Situation: Spouse current occupational status: other 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 Feels Safe at Home: Yes Safety Concerns: Feels Safe At This Time Childhood Exposure to Second-Hand Smoke: Yes caffeine: Yes (coffee) during the past year weight has: remained stable Dental Care, Regularly: Yes Physical Activity Frequency: Daily Seatbelt Use: always Sunscreen Use: Yes Assistive Devices: None Review of Systems Constitutional: no problem reported Respiratory: as per Subjective / HPI Cardiovascular: as per Subjective / HPI Gastrointestinal: as per Subjective / HPI Neurologic: no tremor(s) and no seizure-like activity Physical Exam Constitutional: WD/WN, vitals as above Eyes: EOM intact bilaterally Neck: normal appearance Respiratory: normal respiratory effort, lungs clear to auscultation Cardiovascular: Rate/Rhythm: regular rate and regular rhythm Heart Sounds: no gallop and no murmur Gastrointestinal (Abdomen): Inspection/Auscultation: abdomen normal to inspection and normal bowel sounds Percussion/Palpation: + abdomen tender (epigastric) and abdomen soft Musculoskeletal: Extremities: no cyanosis no lower extremity edema Skin: no rashes, warm and dry Neurologic: moves all extremities Psychiatric: A+Ox3, euthymic affect Results & Data ([facility]) Vital Signs (Past 12 Hours) Vital Signs Temp Pulse Pulse Resp BP Pulse Ox 01/09/21 08:00 90 01/09/21 07:50 36.5 C 69 18 118/63 95 01/09/21 05:17 36.9 C 89 18 111/60 93 01/08/21 22:19 90 Laboratory Results Abnormal lab results 01/09/21 01/09/21 Range/Units 05:45 05:45 RBC 4.16 L (4.2-5.4) M/uL BUN/Creatinine Ratio 23.3 H (10-20) Calcium 8.4 L (8.5-10.1) mg/dl Magnesium 2.7 H (1.8-2.4) mg/dl PG Care Time/CCT Total # of Minutes Spent Total Time Spent with Patient: Total time spent is greater than 50% in coordination of care (as documented) at patient's floor/unit and/or counseling patient: Coding Level of Care Code 88997 Inpt Consult Level 4 Diagnoses Abnormal barium swallow R93.3 GERD without esophagitis K21.9 Chest pressure R07.89
--- NOTE | 2021-01-09 10:36 | Anesthesiology Consultation ---
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 Kaufman - Tim Kaufman MD Height/Weight Height: 5 ft 6 in Weight: 77.3 kg Allergies Allergy/AdvReac Type Severity Reaction Status Date / Time No Known Allergies Allergy Verified 12/31/20 13:52 Medications Home Medications Medication Instructions Recorded Confirmed Last Taken albuterol sulfate 90 mcg/actuation 2 puff INH QID #8 gm 09/05/20 12/31/20 12/30/20 aerosol inhaler escitalopram oxalate [Lexapro] 20 mg PO QAM 12/31/20 12/31/20 12/30/20 fexofenadine 180 mg PO QAM 12/31/20 12/31/20 12/30/20 fluticasone propionate 2 spray INTNAS QA 12/31/20 12/31/20 12/30/20 lisinopril 5 mg PO QAM 12/31/20 12/31/20 12/30/20 pantoprazole 40 mg PO QAM 12/31/20 12/31/20 12/30/20 trazodone 100 mg PO HS 12/31/20 12/31/20 12/30/20 Active Medications Generic Name Dose Route Start Last Admin Trade Name Freq PRN Reason Stop Dose Admin Acetaminophen 650 mg 01/01/21 08:39 01/08/21 06:54 Acetaminophen 325 Mg Tab PO 01/31/21 08:38 650 mg Q6H PRN Administration Pain Al Hydrox/Mg Hydrox/Simethicone 30 ml 01/07/21 13:43 01/07/21 15:22 Aluminum/Magnesium/Simeth (Maalox Max) 30 Ml Udc PO 02/06/21 13:42 30 ml Q6H PRN Administration Dyspepsia Albuterol 2 puffs 01/08/21 09:13 01/09/21 09:49 Albuterol Hfa 8 Gm Inhaler INH 02/07/21 09:12 2 puffs QIDR PRN Administration Shortness Of Breath Or Wheezin Protocol Enoxaparin Sodium 40 mg 12/31/20 21:00 01/08/21 19:50 Enoxaparin Inj 40 Mg/0.4 Ml Syr SQ 01/30/21 20:59 40 mg QPM MARÍA ELENA Administration Escitalopram Oxalate 20 mg 01/01/21 09:00 01/09/21 07:46 Escitalopram Oxalate 20 Mg Tab PO 01/31/21 08:59 20 mg QAM MARÍA ELENA Administration Fexofenadine HCl 180 mg 01/01/21 09:00 01/09/21 07:45 Fexofenadine Hcl 180 Mg Tab PO 01/31/21 08:59 180 mg QAM MARÍA ELENA Administration Fluticasone Propionate 2 sprays 01/01/21 09:00 01/09/21 07:45 Fluticasone Propionate Na Spr 16 Gm Btl ZHANE 01/31/21 08:59 1 sprays QAM MARÍA ELENA Administration Hydroxyzine HCl 10 mg 01/07/21 12:02 01/08/21 19:50 Hydroxyzine Hcl 10 Mg Tab PO 02/06/21 12:01 10 mg TID PRN Administration Anxiety/Agitation Lisinopril 5 mg 01/01/21 09:00 01/09/21 07:46 Lisinopril 5 Mg Tab PO 01/31/21 08:59 5 mg QAM MARÍA ELENA Administration Melatonin 3 mg 01/08/21 21:00 01/08/21 21:53 Melatonin 3 Mg Tab PO 02/07/21 20:59 3 mg HS MARÍA ELENA Administration Ondansetron HCl 4 mg 01/01/21 08:38 01/07/21 11:43 Ondansetron Inj 2 Mg/Ml 2 Ml Vial IV 01/31/21 08:37 4 mg Q6H PRN Administration Nausea And Vomiting Pantoprazole Sodium 40 mg 01/01/21 09:00 01/09/21 07:46 Pantoprazole 40 Mg Tab PO 01/31/21 08:59 40 mg QAM MARÍA ELENA Administration Thiamine HCl 100 mg 12/31/20 16:00 01/09/21 07:46 Thiamine Hcl 100 Mg Tab PO 01/30/21 15:59 100 mg QAM MARÍA ELENA Administration Trazodone HCl 100 mg 12/31/20 21:00 01/08/21 19:50 Trazodone Hcl 100 Mg Tab PO 01/30/21 20:59 100 mg HS MARÍA ELENA Administration NPO Date Last Intake of Fluids: 01/09/21 Time Last Intake of Fluids: 07:30 Date Last Intake of Solids: 01/08/21 Time Last Intake of Solids: 23:00 Past Medical History Medical History (Updated 01/09/21 @ 10:37 by Gaurav Cordero MD) Abnormal barium swallow Alcohol withdrawal Allergic rhinitis Anemia Anxiety disorder Benign essential hypertension Depression Diverticulosis DTs (delirium tremens) Elevated platelet count Elevated vitamin B12 level GERD without esophagitis Melanoma in situ Sinusitis, chronic Sleep disturbance Tubular adenoma of colon Vitamin D deficiency Past Family History Family History Grandmother (Paternal) Colon cancer Father Cardiac disorder Sister Lung cancer Grandfather Lung cancer Grandmother (Maternal) Breast cancer Mother Ovarian cancer Denies family history of Prostate cancer Past Surgical History Surgical History H/O: hysterectomy History of cholecystectomy History of sinus surgery History of tonsillectomy Social History Smoking Status: Never smoker Do You Dip or Chew Tobacco: No Hx Alcohol Use: Yes Alcohol type: wine alcohol intake frequency: 3 or more drinks per day Alcohol Intake Frequency Comment: any alcoholic drink daily at least 12 daily Hx Substance Use: No Physical Exam Vital Signs Last Vital Signs Temp 36.6 C 01/09/21 10:16 Pulse 94 H 01/09/21 10:16 Resp 16 01/09/21 10:16 BP 131/74 01/09/21 10:16 Pulse Ox 96 01/09/21 10:16 Testing Laboratory Results 01/09/21 05:45 01/09/21 05:45 PT 10.3 Seconds (9.0-12.0) 12/31/20 11:49 INR 1.0 (0.9-1.1) 12/31/20 11:49 APTT 28.3 Seconds (21.0-31.0) 12/31/20 11:49 Urine Color Yellow 12/31/20 12:31 Urine Appearance Cloudy (Clear) A 12/31/20 12:31 Urine pH 6.5 (4.5-7.5) 12/31/20 12:31 Ur Specific [place] 1.011 (1.000-1.030) 12/31/20 12:31 Urine Protein Negative (Negative) 12/31/20 12:31 Urine Glucose (UA) Negative (Negative) 12/31/20 12:31 Urine Ketones Trace (Negative) H 12/31/20 12:31 Urine Nitrite Positive (Negative) A 12/31/20 12:31 Ur Leukocyte Esterase 3+ (Negative) H 12/31/20 12:31 Urine WBC (Auto) >30 /hpf (0-5) H 12/31/20 12:31 Urine RBC (Auto) 0-4 /hpf (0-4) 12/31/20 12:31 U Hyaline Cast (Auto) 1-5 /lpf (0-5) 12/31/20 12:31 U Epithel Cells (Auto) >30 /lpf (0-5) H 12/31/20 12:31 Urine Bacteria (Auto) 4+ (Negative) H 12/31/20 12:31 12/31/20 12:31 Urine Culture - Final Urine,Clean Catch Escherichia coli Electrocardiogram Findings: + ST @ Chest X-Ray Findings: + NAD
[2021-01-09] MEDS ORDERED: LIDOCAINE 2% 2 ML VIAL/AMP(20MG/ML) INFIL ONE (11:15)
[2021-01-09] MEDS ORDERED: PROPOFOL IV EMULSION 10 MG/ML 20 ML VIAL IV ONE (11:15)
--- NOTE | 2021-01-09 11:22 | GI REPORT ---
Patient Name: Cris Duran Procedure Date: 01/09/2021 10:26 AM Date of : 1955 Admit Type: Inpatient Age: 65 Gender: Female Attending MD: Tim Kaufman MD Procedure: Upper GI endoscopy Providers: Tim Kaufman MD Referring MD: Jerry Paniagua Md Indications: Dysphagia, abnormal barium swallow Medicines: Monitored Anesthesia Care Complications: No immediate complications. Estimated blood loss: None. Estimated Blood Loss: Estimated blood loss: none. Procedure: Pre-Anesthesia Assessment: - Prior Anticoagulants: The patient has taken no previous anticoagulant or antiplatelet agents. - ASA Grade Assessment: II - A patient with mild systemic disease. After obtaining informed consent, the endoscope was passed under direct vision. Throughout the procedure, the patient's blood pressure, pulse, and oxygen saturations were monitored continuously. The Endoscope was introduced through the mouth, and advanced to the second part of duodenum. The upper GI endoscopy was accomplished without difficulty. The patient tolerated the procedure well. Findings: A mild Schatzki ring was found in the distal esophagus. A TTS dilator was passed through the scope. Dilation with a 15-16.5-18 mm balloon dilator was performed to 18 mm. The dilation site was examined following endoscope reinsertion and showed mild improvement in luminal narrowing. Estimated blood loss: none. A medium-sized hiatal hernia was present. Diffuse mildly erythematous mucosa was found in the stomach. The duodenal bulb and second portion of the duodenum were normal. Impression: - Mild Schatzki ring. Dilated. - Medium-sized hiatal hernia. - Erythematous mucosa in the stomach. - Normal duodenal bulb and second portion of the duodenum. - No specimens collected. Recommendation: - [facility]. - Resume previous diet today. -protonix 40 mg daily Tim Kaufman MD 01/09/2021 11:21:28 AM This report has been signed electronically. Note Initiated On: 01/09/2021 10:26 AM Number of Addenda: 0 I attest to the content of the Intraoperative Record and orders documented therein, exceptions below {[id number]}
--- NOTE | 2021-01-09 11:53 | Anesthesiology Progress Note ---
Date of Service January 09, 2021 Anesthesia Post Procedure Vital Signs Vital Signs: Temp Pulse Pulse Pulse Resp BP Pulse Ox 01/09/21 11:47 82 16 134/76 97 01/09/21 11:33 85 16 131/75 97 01/09/21 11:18 97 H 16 139/68 96 01/09/21 10:16 36.6 C 94 H 16 131/74 96 01/09/21 09:50 75 18 97 01/09/21 08:00 90 01/09/21 07:50 36.5 C 69 18 118/63 95 01/09/21 05:17 36.9 C 89 18 111/60 93 01/08/21 22:19 90 01/08/21 15:22 37.8 C H 89 17 119/78 95 01/08/21 11:57 36.7 C 88 19 134/80 98 Pain Intensity Left Chest: Pain Intensity: 6 Upper Abdomen: Pain Intensity: 6 Head: Pain Intensity: 0 Transfer of Care Handoff Completed per policy Notes Mental Status: alert / awake / arousable and participated in evaluation Patient Amnestic to Procedure: Yes Nausea / Vomiting: adequately controlled Pain: adequately controlled Airway Patency, RR, SpO2: stable & adequate BP & HR: stable & adequate Hydration State: stable & adequate Anesthetic Complications: no major complications apparent and Pt Satisfied with anesthetic care
[2021-01-09] MEDS: hydrOXYzine HCl 10 MG TAB PO PRN ×3 (11:59→19:52)
--- NOTE | 2021-01-09 14:14 | Hospitalist Progress Note ---
Date of Service January 09, 2021 Assessment & Plan (1) GERD without esophagitis: Sensation of food getting stuck in the lower esophagus. Barium swallow shows lower esophageal narrowing. - Continue pantoprazole 40 mg p.o. every morning - GI consulted - EGD on 01/09 with mild Schatzi's ring which was successfully dilated. (2) Alcohol withdrawal: Today is day 7. After 7 days, would be in minority of those withdrawing. - Will taper her gabapentin today. - Continue thiamine - Discontinued AWSS and Ativan today as her objective symptoms have resolved. The RN reports she answers all questions with positive responses and therefore, her RUBEN scores are still borderline. - She does not appear to be in delirium tremens. - Will send home with naltrexone 50 mg PO daily as first-line alcohol use disorder medication. (3) Chest pressure: Suspect related to GERD. No EKG changes. Not having this in the current time. Not exertional. - Add Mylanta PRN - Monitor -> None recently. (4) Anxiety disorder: - Continue Lexapro 20 mg p.o. every morning & trazodone 100 mg p.o. at bedtime - Added hydroxyzine PRN for continued anxiety (5) Benign essential hypertension: BP is 135/75 today. - Continue lisinopril 5 mg p.o. every morning (6) DVT prophylaxis: Lovenox 40 mg SQ daily Admission and Anticipated Discharge Date Admission Date: December 31, 2020 Subjective Doing well today. Feels she is swallowing better after the EGD and dilation. Reports no fevers/chills, chest pain, shortness of breath, abdominal pain, nausea, or vomiting. Physical Exam Constitutional: WD/WN, vitals as above Eyes: EOM intact bilaterally; no conjunctival abnormality ENMT: external ear and nose normal, oropharynx normal (No tongue fasciulations) Neck: trachea midline, no thyromegaly normal visual inspection Respiratory: normal respiratory effort, lungs clear to auscultation no respiratory distress Cardiovascular: RRR, no murmur, no edema Rate/Rhythm: regular rate and regular rhythm Heart Sounds: normal S1 and normal S2 Gastrointestinal (Abdomen): Inspection/Auscultation: abdomen normal to inspection; abdomen not distended Musculoskeletal: no cyanosis or clubbing, extremities motor strength 5/5 Skin: no rashes, warm and dry Neurologic: moves all extremities and awake Motor/Sensory: no tremor (No tremor with outstretched arms) Psychiatric: Orientation: alert, oriented to person and cooperative Results & Data Results & Data ([facility] [place]) Vital Signs (Past 12 Hours) Vital Signs Temp Pulse Pulse Pulse Resp BP Pulse Ox 01/09/21 11:47 82 16 134/76 97 01/09/21 11:33 85 16 131/75 97 01/09/21 11:18 97 H 16 139/68 96 01/09/21 10:16 36.6 C 94 H 16 131/74 96 01/09/21 09:50 75 18 97 01/09/21 08:00 90 01/09/21 07:50 36.5 C 69 18 118/63 95 01/09/21 05:17 36.9 C 89 18 111/60 93 PG Care Time/CCT Total # of Minutes Spent Total Time Spent with Patient: Total time spent is greater than 50% in coordination of care (as documented) at patient's floor/unit and/or counseling patient: Coding Level of Care Code 53090 Subseq Hosp Care Lvl 2 Diagnoses GERD without esophagitis K21.9 Alcohol withdrawal F10.230 Complication of substance-induced condition: uncomplicated Chest pressure R07.89 Anxiety disorder F41.1 Anxiety disorder type: generalized anxiety disorder Benign essential hypertension I10 DVT prophylaxis Z29.9 (1) Alcohol withdrawal Complication of substance-induced condition: uncomplicated Qualified Code(s): F10.230 - Alcohol dependence with withdrawal, uncomplicated (2) Anxiety disorder Anxiety disorder type: generalized anxiety disorder Qualified Code(s): F41.1 - Generalized anxiety disorder
[2021-01-09] MEDS: ENOXAPARIN INJ 40 MG/0.4 ML SYR SQ SCH (19:52)
[2021-01-09] MEDS: traZODone HCL 100 MG TAB PO SCH (19:52)
[2021-01-09] MEDS: MELATONIN 3 MG TAB PO SCH (22:38)
[2021-01-10] MEDS: ESCITALOPRAM OXALATE 20 MG TAB PO SCH (09:06)
[2021-01-10] MEDS: PANTOprazole 40 MG TAB PO SCH (09:06)
[2021-01-10] MEDS: THIAMINE HCL 100 MG TAB PO SCH (09:06)
[2021-01-10] MEDS: FEXOFENADINE HCL 180 MG TAB PO SCH (09:06)
[2021-01-10] MEDS: lisinopril 5 MG TAB PO SCH (09:07)
[2021-01-10] MEDS: FLUTICASONE PROPIONATE NA SPR 16 GM BTL NAE SCH (09:07)
--- NOTE | 2021-01-10 09:27 | Anesthesiology Progress Note ---
Date of Service January 10, 2021 Anesthesia Post Procedure Vital Signs Vital Signs: Temp Pulse Pulse Resp BP Pulse Ox 01/10/21 08:14 36.9 C 86 16 126/78 95 01/09/21 22:29 90 18 106/70 95 01/09/21 15:37 36.7 C 90 16 109/71 94 01/09/21 11:47 82 16 134/76 97 01/09/21 11:33 85 16 131/75 97 01/09/21 11:18 97 H 16 139/68 96 01/09/21 10:16 36.6 C 94 H 16 131/74 96 01/09/21 09:50 75 18 97 Pain Intensity Left Chest: Pain Intensity: 0 Upper Abdomen: Pain Intensity: 0 Head: Pain Intensity: 0 Back: Pain Intensity: 0 Notes Mental Status: alert / awake / arousable and participated in evaluation Patient Amnestic to Procedure: Yes Nausea / Vomiting: adequately controlled Pain: adequately controlled Airway Patency, RR, SpO2: stable & adequate BP & HR: stable & adequate Hydration State: stable & adequate Anesthetic Complications: no major complications apparent
--- NOTE | 2021-01-10 09:42 | Gastroenterology Progress Note ---
Date of Service January 10, 2021 Assessment & Plan (1) GERD without esophagitis: (2) Schatzki's ring of distal esophagus: 1. Diet as tolerated. 2. Continue Pantoprazole 40 mg daily. 3. Repeat EGD with dilation PRN returning dysphagia. 4. Continue supportive care. Will sign off at this time. If you have any questions or concerns, please do not hesitate to contact us. Admission and Anticipated Discharge Date Admission Date: December 31, 2020 Subjective Patient reports she is doing well from a GI standpoint after endoscopy which was performed by Dr. Kaufman yesterday. She was found to have a Schatzki's ring which was successfully dilated. She denies any further chest pain. She reports she is swallowing without difficulty. Mild sore throat after the procedure. Review of Systems Ear, Nose, Mouth, Throat: as per Subjective / HPI Gastrointestinal: as per Subjective / HPI Physical Exam Constitutional: well developed and well nourished Eyes: EOM intact bilaterally Neck: normal visual inspection Respiratory: normal respiratory effort Skin: normal color Psychiatric: A+Ox3, euthymic affect Results & Data Results & Data ([facility]) Vital Signs (Past 12 Hours) Vital Signs Temp Pulse Resp BP Pulse Ox 01/10/21 08:14 36.9 C 86 16 126/78 95 01/09/21 22:29 90 18 106/70 95 PG Care Time/CCT Total # of Minutes Spent Total Time Spent with Patient: Total time spent is greater than 50% in coordination of care (as documented) at patient's floor/unit and/or counseling patient: Coding Level of Care Code 12430 Subseq Hosp Care Lvl 3 Diagnoses GERD without esophagitis K21.9 Schatzki's ring of distal esophagus K22.2
[2021-01-10] MEDS ORDERED: NALTREXONE HCL 50 MG TAB PO ONE (10:00)
--- NOTE | 2021-01-10 20:41 | Discharge Summary ---
Date of Service January 10, 2021 Admission HPI Per Admitting Provider Cris Duran is a 65-year-old female who presents to the ER due to concerns for alcohol withdrawal. She is starting to feel shaky and agitated after having her last drink this morning. She reports drinking heavily since November 19. She comes in today as she feels it is time to stop. Usually she drinks 12 cans of beer a day with additional x4 days at a bar. Alcohol withdrawal symptoms including insomnia, tremors, anxiety, palpitations. She denies any confusion, headache or diaphoresis. She does report ambulatory dysfunction however this is only when she is drinking and not from withdrawals. She reports no prior history of alcohol withdrawal seizures. She is also been noticing some chest heaviness, no worse on exertion, worse after drinking moonshine, nonpleuritic. She has a significant hospitalization here in August for alcohol withdrawal. She did not follow-up for any inpatient or outpatient alcohol rehabilitation after this. She was referred to medicine for admission and ongoing management of delirium tremens. In the ER she is received 2 mg IV lorazepam prior to being seen by myself. Principal Diagnosis Alcohol withdrawal Discharge Exam Constitutional WD/WN, vitals as above Eyes EOM intact bilaterally; no conjunctival abnormality ENMT external ear and nose normal, oropharynx normal (No tongue fasciulations) Neck trachea midline, no thyromegaly normal visual inspection Respiratory normal respiratory effort, lungs clear to auscultation no respiratory distress Cardiovascular RRR, no murmur, no edema Rate/Rhythm: regular rate and regular rhythm Heart Sounds: normal S1 and normal S2 Gastrointestinal (Abdomen) Inspection/Auscultation: abdomen normal to inspection; abdomen not distended Musculoskeletal no cyanosis or clubbing, extremities motor strength 5/5 Skin no rashes, warm and dry Neurologic moves all extremities and awake Motor/Sensory: no tremor (No tremor with outstretched arms) Psychiatric Orientation: alert, oriented to person and cooperative Discharge Data Allergies Allergy/AdvReac Type Severity Reaction Status Date / Time No Known Allergies Allergy Verified 12/31/20 13:52 Consultations 12/31/20 13:39 ED Decision to Admit Stat 01/01/21 10:21 Consult Orthopedic Surgery Routine 01/08/21 14:04 Consult Gastroenterology Routine Procedures Performed Operation Date: 01/09/21 17:00 Actual Procedures p EGD Dilatation - Tim Kaufman MD Ordered Studies 12/31/20 11:38 CT head/brain wo con Stat 12/31/20 11:45 CT cervical spine wo con Stat 01/08/21 12:10 FL barium swallow Routine Hospital Course (1) GERD without esophagitis: Sensation of food getting stuck in the lower esophagus. Barium swallow shows lower esophageal narrowing. - Continue pantoprazole 40 mg p.o. every morning - GI consulted - EGD on 01/09 with mild Schatzi's ring which was successfully dilated. (2) Alcohol withdrawal: - Continue thiamine - Discontinued AWSS and Ativan 2 days prior to discharge as her objective symptoms had resolved. - Sent home with naltrexone 50 mg PO daily as first-line alcohol use disorder medication. She was concerned about relapse at home, so this may help prevent that. (3) Chest pressure: Suspect related to GERD. No EKG changes. Not having this in the current time. Not exertional. - Add Mylanta PRN - Monitor -> None recently. (4) Anxiety disorder: - Continue Lexapro 20 mg p.o. every morning & trazodone 100 mg p.o. at bedtime - Added hydroxyzine PRN for continued anxiety (5) Benign essential hypertension: BP is 135/75 today. - Continue lisinopril 5 mg p.o. every morning (6) DVT prophylaxis: Lovenox 40 mg SQ daily Total Time Total Time Spent Total Time Spent (In Minutes): 35 Discharge Plan Discharge Items Patient Disposition: Home - Self-Care Reason For Visit: ALCOHOL WITHDRAWAL Discharge Diagnosis: Alcohol withdrawal Activity: Resume your previous activity Non-emergency contact: Primary Care Provider Call non-emergency contact if: your symptoms worsen Follow-up/Referrals: Dinah Carranza DO [Primary Care Provider] - 01/18/21 9:20 am Diet: Regular Addtl Attending Provider Instructions: Ms. Duran, You were admitted with alcohol withdrawal symptoms that we were able to control with medication. We have got the alcohol out of your system. We would encourage you to remain sober and consider alcohol treatment options such as AA or even inpatient options. While here, you had a mild narrowing of your esophagus dilated by the GI team. There is no follow up for this needed unless the symptoms return. Please take your acid blocking medication (Protonix) once per day to be sure your stomach is healing. To help with your anxiety, we have given you a prescription for Vistaril (hydroxyzine) which is a non-addictive medication that can help with anxiety. You can take this up to twice a day for anxiety. We also started you on a medication called naltrexone which is meant to curb alcohol cravings. Please take this every day in the morning. Please follow up with your PCP, Dr. Carranza in the next week. Again, please consider AA or other alcohol use programs to maintain your sobriety. We wish you the absolute best! Pending Studies at Discharge: No Stand-Alone Forms: [facility], Smoking Cessation Medications and DC Order Prescriptions: New hydroxyzine HCl 25 mg tablet 25 mg PO BID PRN (Reason: anxiety) Qty: 60 RF: 0 naltrexone 50 mg tablet 50 mg PO DAILY Qty: 30 RF: 0 Continued albuterol sulfate [Ventolin HFA] 90 mcg/actuation HFA aerosol inhaler 2 puff INH QID Qty: 8 RF: 3 trazodone 50 mg tablet 100 mg PO HS RF: 0 fexofenadine 180 mg tablet 180 mg PO QAM RF: 0 pantoprazole 40 mg tablet,delayed release (DR/EC) 40 mg PO QAM RF: 0 lisinopril 5 mg tablet 5 mg PO QAM RF: 0 fluticasone propionate 50 mcg/actuation spray,suspension 2 spray INTNAS QAM RF: 0 escitalopram oxalate [Lexapro] 20 mg tablet 20 mg PO QAM RF: 0 Discharge Orders: Discharge Order (Routine); Ordered 01/10/21 Ordered By: Jerry Rankin/Other Patient Handouts: Alcoholism Resources, Alcoholism: Getting Help Admission Data Admit Date/Time: 12/31/20 14:18 Attending Provider: Jerry Paniagua Admit Provider: Sachin Carrillo Primary Care Provider: Dinah Carranza Other Providers: Jerry Paniagua ; Sachin Carrillo ; Robert Lucero ; Tim Kaufman Other Interventions: Discharge Summary Assessment (RN) Last Done: 01/10/21 11:15 Coding Level of Care Code D/C Day Management >30 mins Diagnoses GERD without esophagitis K21.9 Alcohol withdrawal F10.230 Complication of substance-induced condition: uncomplicated Chest pressure R07.89 Anxiety disorder F41.1 Anxiety disorder type: generalized anxiety disorder Benign essential hypertension I10 DVT prophylaxis Z29.9
== END 2021-01-10 14:07 | disposition home or self-care (01) | DRG 897 ==
LOC: ED 11:25 → SUATTDRO 14:18 → 2S 14:18 → 1E 01-01 02:28 → 2E 01-01 18:33 → 3N 01-09 15:28